=== PATIENT | female | born 1935 | race Caucasian/White ===

== ENCOUNTER 2017-12-07 17:54 | Inpatient (IN) | payer MEDICARE ==
[2017-12-07 19:18] LABS: ABS Basophils 0.1 10^3/ul (0-0.2); ABS Eosinophils 0 10^3/ul (0-0.6); ABS Lymphocytes 1.8 10^3/ul (1.0-4.8); ABS Monocytes 1.4 10^3/ul (0-0.8); ABS Neutrophils 10.9 10^3/ul (1.5-7.7); ABS Nucleated RBC 0 10^3/ul; Eosinophil % 0 % (0-6); Hematocrit 42 % (35-47); Hemoglobin 14.6 g/dl (12.0-16.0); Lymphocyte % 12.5 % (25-47); Mean Corpuscular HGB Conc 35 g/dl (31-36); Mean Corpuscular Hemoglobin 31 pg (27-31); Mean Corpuscular Volume 88 fL (80-97); Mean Platelet Volume 7 um3 (7.4-10.4); Nucleated Red Blood Cells % 0.2; Platelet Count 201 10^3/ul (150-450); Red Blood Count 4.78 10^6/ul (4.0-5.4); Red Cell Distribution Width 14 % (10.5-15); White Blood Count 14.1 10^3/ul (3.5-10.8)
--- NOTE | 2017-12-07 19:20 | RAD ---
Indication: Shortness of breath. 2 views of the chest demonstrates hyperinflated lung dixon. Elevated left hemidiaphragm is noted. Left basilar airspace disease is noted. Right lung field is clear. IMPRESSION: Left lower lobe airspace disease. Lung dixon are clear.
[2017-12-07] MEDS ORDERED: Levofloxacin 750 MG IVPREMIX(* 750 MG/150 ML BAG IVPB ONE (19:25)
[2017-12-07] MEDS ORDERED: NS 0.9% 1000 ML* 1,000 ML IV ONE (19:26)
[2017-12-07 19:32] LABS: INR 1.15 (0.77-1.02)
[2017-12-07 19:34] LABS: EGFR Non-African American 24.8 (>60)
[2017-12-07] MEDS ORDERED: Albuterol 2.5 MG/3 ML NEB.SOL* (0.083%) INH ONE (19:47)
[2017-12-07] MEDS ORDERED: Albuterol/Ipratropium NEB.SOL* Albuterol 2.5 MG/Ipratropium 0.5 MG 3 ML INH ONE (19:47)
--- NOTE | 2017-12-07 20:39 | ED ---
Lin Horowitz Edward, scribed for Angelina Paul MD on 12/07/17 at 1939 . Complex/Multi-Sys Presentation - HPI Summary HPI Summary: 82 y/o female presents to the ED c/o general weakness. Pt was on the toilet and "couldn't get up", per pts' sister. Pt believes she was on the toilet for a couple of hours. Pt lives alone and takes care of herself. Pt is on O2 at home. Per pt's sister, the pt has not been taking her medications. Pt's sister states her family checks on her every couple of weeks. PMHx dementia. - History Of Current Complaint Chief Complaint: EDShortnessOfBreath Time Seen by Provider: 12/07/17 19:18 Hx Obtained From: Patient Onset/Duration: Still Present Timing: Constant - Allergies/Home Medications Allergies/Adverse Reactions: Allergies Allergy/AdvReac Type Severity Reaction Status Date / Time No Known Allergies Allergy Verified 06/03/16 08:56 Home Medications: Home Medications Acetaminophen TAB* [Tylenol TAB*] 650 mg PO Q8HR PRN 12/07/17 [History Confirmed 12/07/17] Judd/D3/Mag11/Zinc/Slinger Sequins/Raji/Bor [Caltrate 600+D Plus Tablet] 2 tab PO BID WITH MEALS 12/07/17 [History Confirmed 12/07/17] Fluticasone NASAL SPRAY 50MCG* [Flonase NASAL SPRAY 50MCG*] 2 spray BOTH NARES DAILY 12/07/17 [History Confirmed 12/07/17] Fluticasone-Salmeterol 250-50* [Advair Diskus 250-50*] 1 puff INH BID 12/07/17 [ History Confirmed 12/07/17] Simvastatin (NF) [Zocor (NF)] 40 mg PO BEDTIME 12/07/17 [History Confirmed 12/07] Tiotropium CAP.INH* [Spiriva CAP.INH*] 1 cap.inh INH DAILY 12/07/17 [History Confirmed 12/07/17] PMH/Surg Hx/FS Hx/Imm Hx Previously Healthy: No Respiratory History: Reports: Hx Chronic Obstructive Pulmonary Disease (COPD) Musculoskeletal History: Denies: Hx Rheumatoid Arthritis, Hx Osteoporosis Neurological History: Reports: Hx Dementia - Cancer History Hx Chemotherapy: No Hx Radiation Therapy: No - Surgical History Surgery Procedure, Year, and Place: lung biopsy Infectious Disease History: No Infectious Disease History: Denies: Traveled Outside the [place] in Last 30 Days - Social History Alcohol Use: None Substance Use Type: Reports: None Smoking Status (MU): Former Smoker Type: Cigarettes Have You Smoked in the Last Year: Yes Review of Systems Constitutional: Negative Eyes: Negative ENT: Negative Cardiovascular: Negative Respiratory: Negative Gastrointestinal: Negative Genitourinary: Negative Musculoskeletal: Negative Skin: Negative Positive: Weakness Psychological: Normal All Other Systems Reviewed And Are Negative: Yes Physical Exam - Summary Physical Exam Summary: VITAL SIGNS: Reviewed. GENERAL: Patient is a well-developed and nourished female who is lying comfortable in the stretcher. Patient is not in any acute respiratory distress. HEAD AND FACE: No signs of trauma. No ecchymosis, hematomas or skull depressions. No sinus tenderness. EYES: PERRLA, EOMI x 2, No injected conjunctiva, no nystagmus. EARS: Hearing grossly intact. Ear canals and tympanic membranes are within normal limits. MOUTH: Oropharynx within normal limits. NECK: Supple, trachea is midline, no adenopathy, no JVD, no carotid bruit, no c- spine tenderness, neck with full ROM. CHEST: Symmetric, no tenderness at palpation LUNGS: Decreased breath sounds bilaterally. CVS: Regular rate and rhythm, S1 and S2 present, no murmurs or gallops appreciated. ABDOMEN: Soft, non-tender. No signs of distention. No rebound no guarding, and no masses palpated. Bowel sounds are normal. EXTREMITIES: FROM in all major joints, no edema, no cyanosis or clubbing. NEURO: Alert and oriented x2-3. Pt does not know her place. No acute neurological deficits. Speech is normal and follows commands. SKIN: Dry and warm Triage Information Reviewed: Yes Vital Signs On Initial Exam: Initial Vitals BP 118/45 12/07/17 18:09 Vital Signs Reviewed: Yes Diagnostics - Vital Signs Vital Signs Temp Pulse Resp BP Pulse Ox 12/07/17 19:00 78 22 98 12/07/17 18:16 97.9 F 83 18 118/45 100 12/07/17 18:11 80 98 12/07/17 18:09 118/45 - Laboratory Lab Results: Lab Results 12/07/17 12/07/1718 Range/Units 19:05 19:05 19:05 WBC 14.1 H (3.5-10.8) 10^3/ul RBC 4.78 (4.0-5.4) 10^6/ul Hgb 14.6 (12.0-16.0) g/dl Hct 42 (35-47) % MCV 88 (80-97) fL MCH 31 (27-31) pg MCHC 35 (31-36) g/dl RDW 14 (10.5-15) % Plt Count 201 (150-450) 10^3/ul MPV 7 L (7.4-10.4) um3 Neut % (Auto) 77.2 (38-83) % Lymph % (Auto) 12.5 L (25-47) % [place] % (Auto) 9.7 H (0-7) % Eos % (Auto) 0 (0-6) % Baso % (Auto) 0.6 (0-2) % Absolute Neuts (auto) 10.9 H (1.5-7.7) 10^3/ul Absolute Lymphs (auto) 1.8 (1.0-4.8) 10^3/ul Absolute Monos (auto) 1.4 H (0-0.8) 10^3/ul Absolute Eos (auto) 0 (0-0.6) 10^3/ul Absolute Basos (auto) 0.1 (0-0.2) 10^3/ul Absolute Nucleated RBC 0 10^3/ul Nucleated RBC % 0.2 INR (Anticoag Therapy) (0.77-1.02) D-Dimer, Quantitative (Less Than 230) ng/mL Sodium 136 (133-145) mmol/L Potassium 3.4 L (3.5-5.0) mmol/L Chloride 95 L (101-111) mmol/L Carbon Dioxide 28 (22-32) mmol/L Anion Gap 13 H (2-11) mmol/L BUN 23 (6-24) mg/dL Creatinine 1.94 H (0.51-0.95) mg/dL Est GFR ( Amer) 31.9 (>60) Est GFR (Non-Af Amer) 24.8 (>60) BUN/Creatinine Ratio 11.9 (8-20) Glucose 141 H (70-100) mg/dL Lactic Acid (0.5-2.0) mmol/L Calcium 9.7 (8.6-10.3) mg/dL Total Bilirubin 1.10 H (0.2-1.0) mg/dL AST 57 H (13-39) U/L ALT 16 (7-52) U/L Alkaline Phosphatase 60 (34-104) U/L Troponin I Pending C-Reactive Protein 285.01 H (< 5.00) mg/L B-Natriuretic Peptide 174 H ( - 100) pg/mL Total Protein 6.6 (6.4-8.9) g/dL Albumin 3.4 (3.2-5.2) g/dL Globulin 3.2 (2-4) g/dL Albumin/Globulin Ratio 1.1 (1-3) 12/07/17 12/07/17 Range/Units 19:05 19:05 WBC (3.5-10.8) 10^3/ul RBC (4.0-5.4) 10^6/ul Hgb (12.0-16.0) g/dl Hct (35-47) % MCV (80-97) fL MCH (27-31) pg MCHC (31-36) g/dl RDW (10.5-15) % Plt Count (150-450) 10^3/ul MPV (7.4-10.4) um3 Neut % (Auto) (38-83) % Lymph % (Auto) (25-47) % [place] % (Auto) (0-7) % Eos % (Auto) (0-6) % Baso % (Auto) (0-2) % Absolute Neuts (auto) (1.5-7.7) 10^3/ul Absolute Lymphs (auto) (1.0-4.8) 10^3/ul Absolute Monos (auto) (0-0.8) 10^3/ul Absolute Eos (auto) (0-0.6) 10^3/ul Absolute Basos (auto) (0-0.2) 10^3/ul Absolute Nucleated RBC 10^3/ul Nucleated RBC % INR (Anticoag Therapy) 1.15 H (0.77-1.02) D-Dimer, Quantitative > 1050 H (Less Than 230) ng/mL Sodium (133-145) mmol/L Potassium (3.5-5.0) mmol/L Chloride (101-111) mmol/L Carbon Dioxide (22-32) mmol/L Anion Gap (2-11) mmol/L BUN (6-24) mg/dL Creatinine (0.51-0.95) mg/dL Est GFR ( Amer) (>60) Est GFR (Non-Af Amer) (>60) BUN/Creatinine Ratio (8-20) Glucose (70-100) mg/dL Lactic Acid 1.7 (0.5-2.0) mmol/L Calcium (8.6-10.3) mg/dL Total Bilirubin (0.2-1.0) mg/dL AST (13-39) U/L ALT (7-52) U/L Alkaline Phosphatase (34-104) U/L Troponin I C-Reactive Protein (< 5.00) mg/L B-Natriuretic Peptide ( - 100) pg/mL Total Protein (6.4-8.9) g/dL Albumin (3.2-5.2) g/dL Globulin (2-4) g/dL Albumin/Globulin Ratio (1-3) Result Diagrams: 12/07/17 19:05 12/07/17 19:05 Lab Statement: Any lab studies that have been ordered have been reviewed, and results considered in the medical decision making process. - Radiology CXR Xray Interpretation: Positive (See Comments) - Left lower lobe airspace disease. Lung dixon are clear. Radiology Interpretation Completed By: Radiologist - EKG 1 EKG Interpretation: 18:32 - SR @ 80 BPM. Normal axis, normal interval, no ischemic changes. Complex Multi-Symp Course/Dx Assessment/Plan: CXR SHOWS Left lower lobe airspace disease. Lung dixon are clear. EKG normal. Trop 0.06. Spoke with Dr. Perez, who agreed to admit the pt. - Diagnoses Provider Diagnoses: Pneumonia, COPD (chronic obstructive pulmonary disease), Rhabdomyolysis - Physician Notifications Discussed Care Of Patient With: Min Perez Time Discussed With Above Provider: 20:33 Instructed by Provider To: Admit As Inpatient Discharge - Discharge Plan Condition: Stable Disposition: ADMITTED TO [facility] Referrals: Aurea Dorsey MD [Primary Care Provider] - The documentation as recorded by the scribLin stein Edward accurately reflects the service I personally performed and the decisions made by me, Angelina Paul MD.
--- NOTE | 2017-12-07 23:18 | HP ---
H&P (Free Text) History and Physical: PCP: Lam Dorsey MD Date/Time: 12/07/2017 2320 CC: SOB HPI: Mrs Schroeder is an 82YO female HX of dementia COPD, lung nodules, essential tremor, metabolic syndrome, HLD/hypertriglyceridemia, DVT/PE, & osteoporosis who reports increased fatigue over the past few days. She went to the restroom reportedly around 0930 and was found on the toilet around 1130 by her sister who came to visit and was unable to assist her up and so EMS was called. Initially, Mrs Schroeder refused transport, but eventually acquiesced. She reports mild cough and congestion for the past 6 months with occasional subjective fevers, but denies chills, sweats, N/V, diarrhea, chest pain, abdominal pain, rash/wound, changes in bowel/bladder or other issues. Of note, her anticoagulation for DVT/PE was discontinued ~2 months ago per her sister due to hematuria. However, her presentation gives me low concern for PE despite her d-dimer being elevated as its predictive value in this scenario is low. Will check BLE US in AM, but do not plan to pursue further. PMedHx COPD lung nodules essential tremor metabolic syndrome HLD/hypertriglyceridemia osteoporosis DVT/PE dementia Ambulatory Orders Acetaminophen TAB* [Tylenol TAB*] 650 mg PO Q8HR PRN 12/07/17 Judd/D3/Mag11/Zinc/Beater [employer] Leveling Machine/Raji/Bor [Caltrate 600+D Plus Tablet] 2 tab PO BID WITH MEALS 12/07/17 Fluticasone NASAL SPRAY 50MCG* [Flonase NASAL SPRAY 50MCG*] 2 spray BOTH NARES DAILY 12/07/17 Fluticasone-Salmeterol 250-50* [Advair Diskus 250-50*] 1 puff INH BID 12/07/17 Simvastatin (NF) [Zocor (NF)] 40 mg PO BEDTIME 12/07/17 Allergies No Known Allergies Allergy (Verified 06/03/16 08:56) PSurgHx tonsillectomy SocHx: quit smoking 2 months ago with a >50PYHX, no alcohol or recreational drugs; lives alone in a private home; full code status FamHx: positive for Alzheimer's ROS: as above, otherwise reviewed and all were negative vitals: Vital Signs Temp 36.4 C 12/08/17 01:23 Pulse 83 12/08/17 01:23 Resp 20 12/08/17 01:23 BP 108/41 12/08/17 01:23 Pulse Ox 97 12/08/17 01:23 Intake & Output 12/07/17 12/07/17 12/08/17 11:59 23:59 11:59 Intake Total 1150 Balance 1150 Weight 68.039 kg 79.016 kg Intake: IV Fluids 1150 Constitutional: NAD, normally developed, obese elderly white female HEENM: atraumatic; sclera/conjunctiva: anicteric/clear; hearing: clinically mildly decreased; oropharynx: clear, mucosa tacky Neck: soft tissue: non-tender, no nuchal rigidity; thyroid: normal Pulmonary: L>R basilar crackles, fair to good aeration, no accessory muscle use CV: RR/RR, normal S1S2, no carotid bruit, no jugular venous distention, 2+ B DP/ PT, no edema Abdominal: soft, non-distended, non-tender, no rebound/guarding/rigidity, normoactive bowel sounds, no hepatosplenomegaly or masses, no costovertebral angle tenderness Musculoskeletal: general: grossly intact, no tenderness with palpation Integumental: normal appearance and texture of exposed skin Psychiatric orientation: AA&O to PP, only loosely to situation affect: calm, pleasantly confused mood: cooperative eye contact: fair to good content: unreliable memory: impaired responses: timely insight: poor Testing: Lab Results 12/07/17 12/07/17 12/07/17 Range/Units 19:05 19:05 19:05 WBC 14.1 H (3.5-10.8) 10^3/ul RBC 4.78 (4.0-5.4) 10^6/ul Hgb 14.6 (12.0-16.0) g/dl Hct 42 (35-47) % MCV 88 (80-97) fL MCH 31 (27-31) pg MCHC 35 (31-36) g/dl RDW 14 (10.5-15) % Plt Count 201 (150-450) 10^3/ul MPV 7 L (7.4-10.4) um3 Neut % (Auto) 77.2 (38-83) % Lymph % (Auto) 12.5 L (25-47) % [place] % (Auto) 9.7 H (0-7) % Eos % (Auto) 0 (0-6) % Baso % (Auto) 0.6 (0-2) % Absolute Neuts (auto) 10.9 H (1.5-7.7) 10^3/ul Absolute Lymphs (auto) 1.8 (1.0-4.8) 10^3/ul Absolute Monos (auto) 1.4 H (0-0.8) 10^3/ul Absolute Eos (auto) 0 (0-0.6) 10^3/ul Absolute Basos (auto) 0.1 (0-0.2) 10^3/ul Absolute Nucleated RBC 0 10^3/ul Nucleated RBC % 0.2 INR (Anticoag Therapy) (0.77-1.02) D-Dimer, Quantitative (Less Than 230) ng/mL Sodium 136 (133-145) mmol/L Potassium 3.4 L (3.5-5.0) mmol/L Chloride 95 L (101-111) mmol/L Carbon Dioxide 28 (22-32) mmol/L Anion Gap 13 H (2-11) mmol/L BUN 23 (6-24) mg/dL Creatinine 1.94 H (0.51-0.95) mg/dL Est GFR ( Amer) 31.9 (>60) Est GFR (Non-Af Amer) 24.8 (>60) BUN/Creatinine Ratio 11.9 (8-20) Glucose 141 H (70-100) mg/dL Lactic Acid (0.5-2.0) mmol/L Calcium 9.7 (8.6-10.3) mg/dL Total Bilirubin 1.10 H (0.2-1.0) mg/dL AST 57 H (13-39) U/L ALT 16 (7-52) U/L Alkaline Phosphatase 60 (34-104) U/L Total Creatine Kinase 1676 H (10-223) U/L Troponin I 0.06 H* (<0.04) ng/mL C-Reactive Protein 285.01 H (< 5.00) mg/L B-Natriuretic Peptide 174 H ( - 100) pg/mL Total Protein 6.6 (6.4-8.9) g/dL Albumin 3.4 (3.2-5.2) g/dL Globulin 3.2 (2-4) g/dL Albumin/Globulin Ratio 1.1 (1-3) 12/07/17 12/07/17 Range/Units 19:05 19:05 WBC (3.5-10.8) 10^3/ul RBC (4.0-5.4) 10^6/ul Hgb (12.0-16.0) g/dl Hct (35-47) % MCV (80-97) fL MCH (27-31) pg MCHC (31-36) g/dl RDW (10.5-15) % Plt Count (150-450) 10^3/ul MPV (7.4-10.4) um3 Neut % (Auto) (38-83) % Lymph % (Auto) (25-47) % [place] % (Auto) (0-7) % Eos % (Auto) (0-6) % Baso % (Auto) (0-2) % Absolute Neuts (auto) (1.5-7.7) 10^3/ul Absolute Lymphs (auto) (1.0-4.8) 10^3/ul Absolute Monos (auto) (0-0.8) 10^3/ul Absolute Eos (auto) (0-0.6) 10^3/ul Absolute Basos (auto) (0-0.2) 10^3/ul Absolute Nucleated RBC 10^3/ul Nucleated RBC % INR (Anticoag Therapy) 1.15 H (0.77-1.02) D-Dimer, Quantitative > 1050 H (Less Than 230) ng/mL Sodium (133-145) mmol/L Potassium (3.5-5.0) mmol/L Chloride (101-111) mmol/L Carbon Dioxide (22-32) mmol/L Anion Gap (2-11) mmol/L BUN (6-24) mg/dL Creatinine (0.51-0.95) mg/dL Est GFR ( Amer) (>60) Est GFR (Non-Af Amer) (>60) BUN/Creatinine Ratio (8-20) Glucose (70-100) mg/dL Lactic Acid 1.7 (0.5-2.0) mmol/L Calcium (8.6-10.3) mg/dL Total Bilirubin (0.2-1.0) mg/dL AST (13-39) U/L ALT (7-52) U/L Alkaline Phosphatase (34-104) U/L Total Creatine Kinase (10-223) U/L Troponin I (<0.04) ng/mL C-Reactive Protein (< 5.00) mg/L B-Natriuretic Peptide ( - 100) pg/mL Total Protein (6.4-8.9) g/dL Albumin (3.2-5.2) g/dL Globulin (2-4) g/dL Albumin/Globulin Ratio (1-3) ECG, personally reviewed: NSR rate 80, no ischemia CXR, personally reviewed: interval development of infiltrate obscuring the L miguel-diaphragm Impression: 82F presenting with sepsis 2nd LLL pneumonia DIAGNOSIS & PLAN Primary LLL pneumonia : IVFs : IV levofloxacin : blood & sputum CXs : check rapid influenza : check S Pneumo & Legionella urine antigens : CRP >150, indication for steroids in CAP, start IV methylprednisolone : supplemental oxygen : supportive care acute encephalopathy complicated baseline dementia : if no improvement in cognition, may need placement : social media content specialist consult early rhabdomyolysis : IVFs, trend total CK BRICE, suspect pre-renal : IVFs, trend hypoKalemia : replace elevated d-dimer : check BLE US in AM : no clinical complaints consistent with PE, low predictive value in this settin , no further work up recommended elevated troponin : suspect demand ischemia 2nd pneumonia : telemetry, trend Secondary COPD : albuterol nebs : mometasone/formoterol : tiotropium lung nodules : continue outpatient surveillance essential tremor : no acute issues HLD/hypertriglyceridemia : continue simvastatin HX DVT/PE : SQ heparin dementia : consider initiating donepezil upon discharge Admission Rational: inpatient for IVFs and IV ABX required for LLL pneumonia in a patient at high risk of morbidity/mortality; inappropriate for outpatient setting DVTp: heparin SQ Code Status: full HCP: sister
[2017-12-08] MEDS: NS 0.9% 1000 ML* 1,000 ML IV SCH ×2 (02:30→17:57)
[2017-12-08] MEDS ORDERED: methylPREDNISolone 125 MG* 2 ML VIAL IV ONE (03:44)
[2017-12-08] MEDS ORDERED: Albuterol 2.5 MG/3 ML NEB.SOL* (0.083%) INH PRN (03:48)
[2017-12-08] MEDS ORDERED: Spiriva Inhaler DEVICE* 1 EACH DEVICE SCH (04:00)
[2017-12-08] MEDS: Potassium Chlor TAB* 20 MEQ TAB.ER PO ONE ×2 (04:23→04:43)
[2017-12-08 07:21] LABS: ABS Basophils 0 10^3/ul (0-0.2); ABS Eosinophils 0 10^3/ul (0-0.6); ABS Lymphocytes 0.9 10^3/ul (1.0-4.8); ABS Monocytes 0.3 10^3/ul (0-0.8); ABS Neutrophils 7.4 10^3/ul (1.5-7.7); ABS Nucleated RBC 0 10^3/ul; Eosinophil % 0.1 % (0-6); Hematocrit 36 % (35-47); Hemoglobin 12.7 g/dl (12.0-16.0); Lymphocyte % 9.9 % (25-47); Mean Corpuscular HGB Conc 35 g/dl (31-36); Mean Corpuscular Hemoglobin 31 pg (27-31); Mean Corpuscular Volume 88 fL (80-97); Mean Platelet Volume 7 um3 (7.4-10.4); Nucleated Red Blood Cells % 0; Platelet Count 146 10^3/ul (150-450); Red Blood Count 4.11 10^6/ul (4.0-5.4); Red Cell Distribution Width 13 % (10.5-15); White Blood Count 8.6 10^3/ul (3.5-10.8)
[2017-12-08 07:39] LABS: EGFR Non-African American 43.1 (>60)
--- NOTE | 2017-12-08 08:44 | RAD ---
HISTORY: Elevated dimer and history of PE TECHNIQUE: Multiple transverse and longitudinal ultrasound images were obtained of the veins of the bilateral lower extremities using grayscale, color Doppler, and spectral Doppler imaging with and without compression and with augmentation. FINDINGS: VEINS: Right: The right common femoral vein exhibits positive color flow and phasicity. Beginning at the mid right femoral vein, there is occlusive thrombus extending through the remainder of the femoral-popliteal veins and into the posterior tibial veins. Left: There is occlusive thrombus beginning at the left common femoral vein extending through the femoral popliteal venous system and including one of the 2 peroneal veins and one posterior tibial vein. The left small saphenous vein is also occluded. IMPRESSION: Occlusive thrombus extending from the right mid femoral vein to the infrapopliteal veins and from the left common femoral vein including the infrapopliteal veins.
[2017-12-08] MEDS: Tiotropium CAP.INH* CAP.INH/18 MCG (USE ORDER SET !) INH SCH (09:19)
[2017-12-08] MEDS: Mometasone/Formoter 200/5 MDI INH SCH ×2 (09:20→21:23)
[2017-12-08] MEDS: guaiFENesin ER TAB 600 MG PO SCH ×3 (10:22→21:30)
[2017-12-08] MEDS ORDERED: Potassium Chlor TAB* 20 MEQ TAB.ER PO ONE (10:27)
--- NOTE | 2017-12-08 10:52 | PN ---
Subjective Date of Service: 12/08/17 Interval History: +cough otherwise no complaints Denies SOB although some difficulty with talking No pain No CP, N/V, LH Objective Active Medications: Albuterol (Ventolin 2.5 Mg/3 Ml Neb.Diana*) 2.5 mg INH Q2H PRN PRN Reason: SOB/WHEEZING Atorvastatin Calcium (Lipitor*) 20 mg PO BEDTIME [facility] Device (Tiotropium Inhaler Device*) 1 each .SEE ORDER .USE w/ SPIRIVA CAPS [facility] Enoxaparin Sodium (Lovenox(*)) 80 mg SUBCUT Q24H [facility] Fluticasone Propionate (Flonase Nasal Mondamin 50mcg*) 2 spray BOTH NARES DAILY [facility] Guaifenesin (Mucinex*) 1,200 mg PO BID [facility] Last Admin: 12/08/17 10:22 Dose: 1,200 mg Levofloxacin/Dextrose (Levaquin 750 Mg Ivpremix(*)) 750 mg in 150 mls @ 100 mls /hr IVPB Q48H [facility] Sodium Chloride (Ns 0.9% 1000 Ml*) 1,000 mls @ 100 mls/hr IV PER RATE [facility] Last Admin: 12/08/17 02:30 Dose: 100 mls/hr Methylprednisolone Sodium Succinate (Solu-Medrol 40 Mg) 40 mg IV Q8H [facility] Mometasone Furoate/Formoterol Fumar (Dulera 200/5 Mdi*) 2 puff INH BID [facility] Last Admin: 12/08/17 09:20 Dose: 2 puff Pharmacy Profile Note (Coumadin Per Pharmacy*) 5 note FOLLOW UP .PER PHARMACY PROTOC [facility] PRN Reason: Protocol Tiotropium [place] (Spiriva Cap.Inh*) 1 cap INH DAILY [facility] Last Admin: 12/08/17 09:19 Dose: 1 cap.inh Warfarin Sodium (Coumadin Tab(*)) 5 mg PO 1700 ONE Stop: 12/08/17 17:01 Vital Signs - 8 hr 12/08/17 12/08/17 12/08/17 07:29 08:00 09:24 Temperature 98.1 F Pulse Rate 75 70 Respiratory 18 18 16 Rate Blood Pressure 110/49 (mmHg) O2 Sat by Pulse 96 98 Oximetry Oxygen Devices in Use Now: Nasal Cannula Appearance: chronically ill, NAD, difficult talking in full sentences but not using accessory muscles of respiration Eyes: No Scleral Icterus, PERRLA Ears/Nose/Mouth/Throat: Clear Oropharnyx, Mucous Membranes Moist Neck: NL Appearance and Movements; NL JVP, Trachea Midline Respiratory: Symmetrical Chest Expansion and Respiratory Effort, - - rhonchi left base Cardiovascular: NL Sounds; No Murmurs; No JVD, RRR Abdominal: NL Sounds; No Tenderness; No Distention, No Hepatosplenomegaly Lymphatic: No Cervical Adenopathy Extremities: No Edema, No Clubbing, Cyanosis Skin: No Rash or Ulcers Neurological: Alert and Oriented x 3, - - cn 2-12 intact Result Diagrams: 12/08/17 07:05 12/08/17 07:05 Additional Lab and Data: Lab Results 12/07/17 12/07/17 12/07/17 Range/Units 19:05 19:05 19:05 WBC 14.1 H (3.5-10.8) 10^3/ul RBC 4.78 (4.0-5.4) 10^6/ul Hgb 14.6 (12.0-16.0) g/dl Hct 42 (35-47) % MCV 88 (80-97) fL MCH 31 (27-31) pg MCHC 35 (31-36) g/dl RDW 14 (10.5-15) % Plt Count 201 (150-450) 10^3/ul MPV 7 L (7.4-10.4) um3 Neut % (Auto) 77.2 (38-83) % Lymph % (Auto) 12.5 L (25-47) % [place] % (Auto) 9.7 H (0-7) % Eos % (Auto) 0 (0-6) % Baso % (Auto) 0.6 (0-2) % Absolute Neuts (auto) 10.9 H (1.5-7.7) 10^3/ul Absolute Lymphs (auto) 1.8 (1.0-4.8) 10^3/ul Absolute Monos (auto) 1.4 H (0-0.8) 10^3/ul Absolute Eos (auto) 0 (0-0.6) 10^3/ul Absolute Basos (auto) 0.1 (0-0.2) 10^3/ul Absolute Nucleated RBC 0 10^3/ul Nucleated RBC % 0.2 INR (Anticoag Therapy) (0.77-1.02) D-Dimer, Quantitative (Less Than 230) ng/mL Sodium 136 (133-145) mmol/L Potassium 3.4 L (3.5-5.0) mmol/L Chloride 95 L (101-111) mmol/L Carbon Dioxide 28 (22-32) mmol/L Anion Gap 13 H (2-11) mmol/L BUN 23 (6-24) mg/dL Creatinine 1.94 H (0.51-0.95) mg/dL Est GFR ( Amer) 31.9 (>60) Est GFR (Non-Af Amer) 24.8 (>60) BUN/Creatinine Ratio 11.9 (8-20) Glucose 141 H (70-100) mg/dL Lactic Acid (0.5-2.0) mmol/L Calcium 9.7 (8.6-10.3) mg/dL Total Bilirubin 1.10 H (0.2-1.0) mg/dL AST 57 H (13-39) U/L ALT 16 (7-52) U/L Alkaline Phosphatase 60 (34-104) U/L Troponin I Pending C-Reactive Protein 285.01 H (< 5.00) mg/L B-Natriuretic Peptide 174 H ( - 100) pg/mL Total Protein 6.6 (6.4-8.9) g/dL Albumin 3.4 (3.2-5.2) g/dL Globulin 3.2 (2-4) g/dL Albumin/Globulin Ratio 1.1 (1-3) 12/07/17 12/07/17 Range/Units 19:05 19:05 WBC (3.5-10.8) 10^3/ul RBC (4.0-5.4) 10^6/ul Hgb (12.0-16.0) g/dl Hct (35-47) % MCV (80-97) fL MCH (27-31) pg MCHC (31-36) g/dl RDW (10.5-15) % Plt Count (150-450) 10^3/ul MPV (7.4-10.4) um3 Neut % (Auto) (38-83) % Lymph % (Auto) (25-47) % [place] % (Auto) (0-7) % Eos % (Auto) (0-6) % Baso % (Auto) (0-2) % Absolute Neuts (auto) (1.5-7.7) 10^3/ul Absolute Lymphs (auto) (1.0-4.8) 10^3/ul Absolute Monos (auto) (0-0.8) 10^3/ul Absolute Eos (auto) (0-0.6) 10^3/ul Absolute Basos (auto) (0-0.2) 10^3/ul Absolute Nucleated RBC 10^3/ul Nucleated RBC % INR (Anticoag Therapy) 1.15 H (0.77-1.02) D-Dimer, Quantitative > 1050 H (Less Than 230) ng/mL Sodium (133-145) mmol/L Potassium (3.5-5.0) mmol/L Chloride (101-111) mmol/L Carbon Dioxide (22-32) mmol/L Anion Gap (2-11) mmol/L BUN (6-24) mg/dL Creatinine (0.51-0.95) mg/dL Est GFR ( Amer) (>60) Est GFR (Non-Af Amer) (>60) BUN/Creatinine Ratio (8-20) Glucose (70-100) mg/dL Lactic Acid 1.7 (0.5-2.0) mmol/L Calcium (8.6-10.3) mg/dL Total Bilirubin (0.2-1.0) mg/dL AST (13-39) U/L ALT (7-52) U/L Alkaline Phosphatase (34-104) U/L Troponin I C-Reactive Protein (< 5.00) mg/L B-Natriuretic Peptide ( - 100) pg/mL Total Protein (6.4-8.9) g/dL Albumin (3.2-5.2) g/dL Globulin (2-4) g/dL Albumin/Globulin Ratio (1-3) Microbiology and Other Data: Microbiology 12/08/17 04:05 Influenza Types A,B Antigen (JASON) - Final Nasal Specimen received for Influenza A/B Molecular testing Assess/Plan/Problems-Billing Assessment: 82 yo F h/o COPD, DVT/PE presents after inability to rise from toilet found with LLL PNA, BRICE, rhabdomyolysis, b/l LE DVTs - Patient Problems (1) Pneumonia Comment: Left lower lobe levaquin dosed for CrCl <30 steroids (2) Chronic respiratory failure Comment: On home O2 (3) COPD (chronic obstructive pulmonary disease) Comment: Not in exacerbation Steroids for PNA Dulera and tiotropium (4) Rhabdomyolysis Comment: Normal saline recheck total CK at 1200 (5) Acute kidney failure Comment: Improving in Setting of Infx c/w IVF (6) DVT (deep venous thrombosis) Comment: Will need lifelong AC Reportedly stopped AC 2/2 hematuria Start lovenox to coumadin Monitor (7) DVT prophylaxis Comment: Full dose lovenox
[2017-12-08] MEDS: Enoxaparin(*) 80 MG/0.8 ML SYR SUBCUT SCH (11:06)
[2017-12-08] MEDS: Fluticasone NASAL SPRAY 50MCG* 16 gm SPRAY BTL BOTH NARES SCH (11:07)
--- NOTE | 2017-12-08 15:00 | PN ---
Progress Note - Progress Note Date of Service: 12/08/17 Note: Unable to void Bladder scan >600cc Cook catheter and UA ordered.
[2017-12-08] MEDS ORDERED: Warfarin TAB(*) 5 MG PO ONE (17:00)
[2017-12-08 17:25] LABS: Urine Appearance Cloudy; Urine Blood 2+ (Negative); Urine Color Amber; Urine Ketones Trace (Negative); Urine Protein 1+(30 mg/dL) (Negative); Urine Urobilinogen Negative (Negative)
[2017-12-08] MEDS: Atorvastatin* 20 MG TAB PO SCH ×2 (21:26→21:30)
[2017-12-09] MEDS: guaiFENesin ER TAB 600 MG PO SCH ×2 (08:36→21:42)
[2017-12-09] MEDS: Tiotropium CAP.INH* CAP.INH/18 MCG (USE ORDER SET !) INH SCH (08:41)
[2017-12-09] MEDS: Fluticasone NASAL SPRAY 50MCG* 16 gm SPRAY BTL BOTH NARES SCH (08:41)
[2017-12-09] MEDS: Mometasone/Formoter 200/5 MDI INH SCH ×2 (08:41→20:50)
[2017-12-09] MEDS: methylPREDNISolone SOD 40 MG* 1 ML VIAL IV SCH ×2 (10:33→21:42)
[2017-12-09] MEDS: Enoxaparin(*) 80 MG/0.8 ML SYR SUBCUT SCH (10:33)
[2017-12-09 10:57] LABS: INR 1.06 (0.77-1.02)
[2017-12-09] MEDS ORDERED: Warfarin TAB(*) 5 MG PO ONE (17:00)
[2017-12-09] MEDS ORDERED: GuaiFENesin DM sugar free* 5 ML UDC PO PRN (17:48)
--- NOTE | 2017-12-09 18:27 | PN ---
Subjective Date of Service: 12/09/17 Interval History: +cough but unproductive Turning down lovenox but accepting late day Seen in conjunction with sister Appetite OK Objective Active Medications: Albuterol (Ventolin 2.5 Mg/3 Ml Neb.Diana*) 2.5 mg INH Q2H PRN PRN Reason: SOB/WHEEZING Atorvastatin Calcium (Lipitor*) 20 mg PO BEDTIME [facility] Last Admin: 12/08/17 21:30 Dose: Not Given Device (Tiotropium Inhaler Device*) 1 each .SEE ORDER .USE w/ SPIRIVA CAPS [facility] Enoxaparin Sodium (Lovenox(*)) 120 mg SUBCUT Q24HR@1100 [facility] Fluticasone Propionate (Flonase Nasal [place] 50mcg*) 2 spray BOTH NARES DAILY [facility] Last Admin: 12/09/17 08:41 Dose: 2 spray Guaifenesin (Mucinex*) 1,200 mg PO BID [facility] Last Admin: 12/09/17 08:36 Dose: 1,200 mg Guaifenesin/Dextromethorphan (Robitussin Dm Sugar Free*) 5 ml PO Q6H PRN PRN Reason: COUGH Levofloxacin/Dextrose (Levaquin 750 Mg Ivpremix(*)) 750 mg in 150 mls @ 100 mls /hr IVPB Q48H [facility] Methylprednisolone Sodium Succinate (Solu-Medrol 40 Mg) 40 mg IV Q8H [facility] Last Admin: 12/09/17 10:33 Dose: 40 mg Mometasone Furoate/Formoterol Fumar (Dulera 200/5 Mdi*) 2 puff INH BID [facility] Last Admin: 12/09/17 08:41 Dose: 2 puff Pharmacy Profile Note (Coumadin Per Pharmacy*) 5 note FOLLOW UP .PER PHARMACY PROTOC [facility] PRN Reason: Protocol Tiotropium [place] (Spiriva Cap.Inh*) 1 cap INH DAILY [facility] Last Admin: 12/09/17 08:41 Dose: 1 cap.inh Vital Signs - 8 hr 12/09/17 12/09/17 12/09/17 11:20 15:51 15:59 Temperature 97.1 F Pulse Rate 70 75 Respiratory 18 18 Rate Blood Pressure 93/42 114/61 (mmHg) O2 Sat by Pulse 97 98 98 Oximetry Oxygen Devices in Use Now: Nasal Cannula Appearance: NAD, talks in short sentences reportedly at baseline Eyes: No Scleral Icterus, PERRLA Ears/Nose/Mouth/Throat: Clear Oropharnyx, Mucous Membranes Moist Neck: NL Appearance and Movements; NL JVP, Trachea Midline Respiratory: Symmetrical Chest Expansion and Respiratory Effort, - - increased rhonchi, worse in left base, decreased BS in right Cardiovascular: RRR Abdominal: NL Sounds; No Tenderness; No Distention, No Hepatosplenomegaly Lymphatic: No Cervical Adenopathy Extremities: No Edema Neurological: - - AOx2 Result Diagrams: 12/08/17 07:05 12/09/17 10:29 Additional Lab and Data: Lab Results 12/07/17 12/07/17 12/07/17 Range/Units 19:05 19:05 19:05 WBC 14.1 H (3.5-10.8) 10^3/ul RBC 4.78 (4.0-5.4) 10^6/ul Hgb 14.6 (12.0-16.0) g/dl Hct 42 (35-47) % MCV 88 (80-97) fL MCH 31 (27-31) pg MCHC 35 (31-36) g/dl RDW 14 (10.5-15) % Plt Count 201 (150-450) 10^3/ul MPV 7 L (7.4-10.4) um3 Neut % (Auto) 77.2 (38-83) % Lymph % (Auto) 12.5 L (25-47) % [place] % (Auto) 9.7 H (0-7) % Eos % (Auto) 0 (0-6) % Baso % (Auto) 0.6 (0-2) % Absolute Neuts (auto) 10.9 H (1.5-7.7) 10^3/ul Absolute Lymphs (auto) 1.8 (1.0-4.8) 10^3/ul Absolute Monos (auto) 1.4 H (0-0.8) 10^3/ul Absolute Eos (auto) 0 (0-0.6) 10^3/ul Absolute Basos (auto) 0.1 (0-0.2) 10^3/ul Absolute Nucleated RBC 0 10^3/ul Nucleated RBC % 0.2 INR (Anticoag Therapy) (0.77-1.02) D-Dimer, Quantitative (Less Than 230) ng/mL Sodium 136 (133-145) mmol/L Potassium 3.4 L (3.5-5.0) mmol/L Chloride 95 L (101-111) mmol/L Carbon Dioxide 28 (22-32) mmol/L Anion Gap 13 H (2-11) mmol/L BUN 23 (6-24) mg/dL Creatinine 1.94 H (0.51-0.95) mg/dL Est GFR ( Amer) 31.9 (>60) Est GFR (Non-Af Amer) 24.8 (>60) BUN/Creatinine Ratio 11.9 (8-20) Glucose 141 H (70-100) mg/dL Lactic Acid (0.5-2.0) mmol/L Calcium 9.7 (8.6-10.3) mg/dL Total Bilirubin 1.10 H (0.2-1.0) mg/dL AST 57 H (13-39) U/L ALT 16 (7-52) U/L Alkaline Phosphatase 60 (34-104) U/L Troponin I Pending C-Reactive Protein 285.01 H (< 5.00) mg/L B-Natriuretic Peptide 174 H ( - 100) pg/mL Total Protein 6.6 (6.4-8.9) g/dL Albumin 3.4 (3.2-5.2) g/dL Globulin 3.2 (2-4) g/dL Albumin/Globulin Ratio 1.1 (1-3) 12/07/17 12/07/17 Range/Units 19:05 19:05 WBC (3.5-10.8) 10^3/ul RBC (4.0-5.4) 10^6/ul Hgb (12.0-16.0) g/dl Hct (35-47) % MCV (80-97) fL MCH (27-31) pg MCHC (31-36) g/dl RDW (10.5-15) % Plt Count (150-450) 10^3/ul MPV (7.4-10.4) um3 Neut % (Auto) (38-83) % Lymph % (Auto) (25-47) % [place] % (Auto) (0-7) % Eos % (Auto) (0-6) % Baso % (Auto) (0-2) % Absolute Neuts (auto) (1.5-7.7) 10^3/ul Absolute Lymphs (auto) (1.0-4.8) 10^3/ul Absolute Monos (auto) (0-0.8) 10^3/ul Absolute Eos (auto) (0-0.6) 10^3/ul Absolute Basos (auto) (0-0.2) 10^3/ul Absolute Nucleated RBC 10^3/ul Nucleated RBC % INR (Anticoag Therapy) 1.15 H (0.77-1.02) D-Dimer, Quantitative > 1050 H (Less Than 230) ng/mL Sodium (133-145) mmol/L Potassium (3.5-5.0) mmol/L Chloride (101-111) mmol/L Carbon Dioxide (22-32) mmol/L Anion Gap (2-11) mmol/L BUN (6-24) mg/dL Creatinine (0.51-0.95) mg/dL Est GFR ( Amer) (>60) Est GFR (Non-Af Amer) (>60) BUN/Creatinine Ratio (8-20) Glucose (70-100) mg/dL Lactic Acid 1.7 (0.5-2.0) mmol/L Calcium (8.6-10.3) mg/dL Total Bilirubin (0.2-1.0) mg/dL AST (13-39) U/L ALT (7-52) U/L Alkaline Phosphatase (34-104) U/L Troponin I C-Reactive Protein (< 5.00) mg/L B-Natriuretic Peptide ( - 100) pg/mL Total Protein (6.4-8.9) g/dL Albumin (3.2-5.2) g/dL Globulin (2-4) g/dL Albumin/Globulin Ratio (1-3) Microbiology and Other Data: Microbiology 12/08/17 04:05 Influenza Types A,B Antigen (JASON) - Final Nasal Specimen received for Influenza A/B Molecular testing Assess/Plan/Problems-Billing Assessment: 82 yo F h/o COPD, DVT/PE presents after inability to rise from toilet found with LLL PNA, BRICE, rhabdomyolysis, b/l LE DVTs - Patient Problems (1) Pneumonia Comment: Left lower lobe levaquin dosed for CrCl 35 steroids IV. Can consider tapering tomorrow 12/10 Flutter valve, consider chest PT tomorrow if still unable to expectorate sputum (2) Chronic respiratory failure Comment: On home O2 (3) COPD (chronic obstructive pulmonary disease) Comment: Not in exacerbation Steroids for PNA Dulera and tiotropium (4) Rhabdomyolysis Comment: Stop normal saline (5) Acute kidney failure Comment: Improving in Setting of Infx (6) DVT (deep venous thrombosis) Comment: Will need lifelong AC Reportedly stopped AC 11/14 hematuria Start lovenox to coumadin Monitor (7) Acute urinary retention Comment: parekh place 12/08 after >600 retained urine cx pending but no bacteria in UA (8) DVT prophylaxis Comment: Full dose lovenox
[2017-12-09] MEDS ORDERED: Levofloxacin 750 MG IVPREMIX(* 750 MG/150 ML BAG IVPB SCH (20:00)
[2017-12-09] MEDS: Atorvastatin* 20 MG TAB PO SCH (21:42)
[2017-12-10] MEDS: methylPREDNISolone SOD 40 MG* 1 ML VIAL IV SCH ×2 (04:50→12:57)
[2017-12-10] MEDS: Mometasone/Formoter 200/5 MDI INH SCH ×2 (08:26→20:08)
[2017-12-10] MEDS: Tiotropium CAP.INH* CAP.INH/18 MCG (USE ORDER SET !) INH SCH (08:27)
[2017-12-10 09:33] LABS: INR 1.35 (0.77-1.02)
[2017-12-10] MEDS: guaiFENesin ER TAB 600 MG PO SCH ×3 (10:23→23:04)
[2017-12-10] MEDS: Fluticasone NASAL SPRAY 50MCG* 16 gm SPRAY BTL BOTH NARES SCH (10:23)
[2017-12-10] MEDS: Enoxaparin(*) 150 MG/ML 1 ML SYRINGE SUBCUT SCH (10:24)
--- NOTE | 2017-12-10 13:25 | PN ---
Subjective Date of Service: 12/10/17 Interval History: Patient seen and examined at bedside. Denies fever, chills, shortness of breath , chest discomfort, N/V/D. Pt states that she uses 2L of O2 at home. Family History: Unchanged from Admission Social History: Unchanged from Admission Past Medical History: Unchanged from Admission Objective Active Medications: Albuterol (Ventolin 2.5 Mg/3 Ml Neb.Diana*) 2.5 mg INH Q2H PRN Reason: SOB/ WHEEZING Atorvastatin Calcium (Lipitor*) 20 mg PO BEDTIME [facility] Device (Tiotropium Inhaler Device*) 1 each .SEE ORDER .USE w/ SPIRIVA CAPS [facility] Enoxaparin Sodium (Lovenox(*)) 120 mg SUBCUT Q24HR@1100 [facility] Fluticasone Propionate (Flonase Nasal [place] 50mcg*) 2 spray BOTH NARES DAILY [facility] Guaifenesin (Mucinex*) 1,200 mg PO BID [facility] Guaifenesin/Dextromethorphan (Robitussin Dm Sugar Free*) 5 ml PO Q6H PRN Reason : COUGH Levofloxacin/Dextrose (Levaquin 750 Mg Ivpremix(*)) 750 mg in 150 mls @ 100 mls /hr IVPB Q48H [facility] Methylprednisolone Sodium Succinate (Solu-Medrol 40 Mg) 40 mg IV Q8H [facility] Mometasone Furoate/Formoterol Fumar (Dulera 200/5 Mdi*) 2 puff INH BID [facility] Pharmacy Profile Note (Coumadin Per Pharmacy*) 5 note FOLLOW UP .PER PHARMACY PROTOC [facility] Tiotropium [place] (Spiriva Cap.Inh*) 1 cap INH DAILY [facility] Warfarin Sodium (Coumadin Tab(*)) 5 mg PO ONCE@1700 ONE Stop: 12/10/17 17:01 Vital Signs - 8 hr 12/10/17 12/10/17 07:52 08:26 Temperature 97.4 F Pulse Rate 70 88 Respiratory 16 Rate Blood Pressure 132/58 (mmHg) O2 Sat by Pulse 96 Oximetry Oxygen Devices in Use Now: Nasal Cannula - 2.5L Appearance: NAD, laying in bed Ears/Nose/Mouth/Throat: Mucous Membranes Moist Respiratory: Symmetrical Chest Expansion and Respiratory Effort, Clear to Auscultation Cardiovascular: NL Sounds; No Murmurs; No JVD, RRR Abdominal: NL Sounds; No Tenderness; No Distention Extremities: - - Bilateral LE edema left > right Skin: No Rash or Ulcers Neurological: NL Muscle Strength and Tone, - - Alert and Oriented to Person, confused Lines/Tubes/Other Access: Clean, Dry and Intact Cook - patent, draining clear yellow urine, Clean, Dry and Intact Peripheral IV - site benign Nutrition: Taking PO's Result Diagrams: 12/08/17 07:05 12/09/17 10:29 Additional Lab and Data: Microbiology and Other Data: Microbiology 12/08/17 04:05 Influenza Types A,B Antigen (JASON) - Final Nasal Specimen received for Influenza A/B Molecular testing Assess/Plan/Problems-Billing Assessment: Ms. Schroeder is an 82 yo F with PMH significant for COPD, DVT/PE, and dementia who presented after inability to rise from toilet and was found to have LLL PNA , BRICE, rhabdomyolysis, and b/l LE DVTs. - Patient Problems (1) Pneumonia Code(s): J18.9 - PNEUMONIA, UNSPECIFIED ORGANISM SNOMED Code(s): 221731077 Comment: - Left lower lobe - Blood cultures, no growth day 2 - Urine antigens for legionella and S. Pneumo negative - Continue Levaquin, dosed for CrCl 35 and IV steroids (start PO taper in the AM ) - Flutter valve, consider chest PT if still unable to expectorate sputum (2) DVT (deep venous thrombosis) Code(s): I82.409 - ACUTE EMBOLISM AND THOMBOS UNSP DEEP VN UNSP LOWER EXTREMITY SNOMED Code(s): 787103722 Comment: - Occlusive thrombus extending from the right mid femoral vein to the infrapopliteal veins and from the left common femoral vein including the infrapopliteal veins. - Reportedly stopped anticoagulation secondary to hematuria - Will need lifelong anticoagulation - Continue lovenox bridge to coumadin (3) Rhabdomyolysis Code(s): M62.82 - RHABDOMYOLYSIS SNOMED Code(s): 632204585 Comment: - CK trending down (4) Chronic respiratory failure Code(s): J96.10 - CHRONIC RESPIRATORY FAILURE, UNSP W HYPOXIA OR HYPERCAPNIA SNOMED Code(s): 07747207 Comment: - Chronic hypoxic respiratory failure - On home O2 (5) Acute kidney failure Comment: - Resolved (6) Acute urinary retention Code(s): R33.8 - OTHER RETENTION OF URINE SNOMED Code(s): 604807989 Comment: - Cook place 12/08 after >600 retained - Urine cx pending but no bacteria in UA (7) Elevated troponin Code(s): R74.8 - ABNORMAL LEVELS OF OTHER SERUM ENZYMES SNOMED Code(s): 582465769 Comment: - Denies chest pain - Suspect secondary to demand ischemia in the setting of infection and fall (8) Hypokalemia Code(s): E87.6 - HYPOKALEMIA SNOMED Code(s): 84977352 Comment: - Resolved (9) COPD (chronic obstructive pulmonary disease) Code(s): J44.9 - CHRONIC OBSTRUCTIVE PULMONARY DISEASE, UNSPECIFIED SNOMED Code(s): 55817561 Comment: - No signs of exacerbation - Continue steroid lorena - Continue Dulera and tiotropium (10) DVT prophylaxis Code(s): OUF1498 - SNOMED Code(s): 355510744 Comment: - Lovenox bridge to Warfarin (11) Full code status Code(s): Z78.9 - OTHER SPECIFIED HEALTH STATUS SNOMED Code(s): 244389199 Status and Disposition: Inpatient. Discharge when medically stable, possibly ready for discharge to [facility] in the AM.
[2017-12-10] MEDS ORDERED: Warfarin TAB(*) 5 MG PO ONE (17:00)
[2017-12-10] MEDS: Atorvastatin* 20 MG TAB PO SCH ×2 (22:45→23:05)
[2017-12-11 06:27] LABS: Hematocrit 39 % (35-47); Hemoglobin 13.4 g/dl (12.0-16.0); Mean Platelet Volume 7 um3 (7.4-10.4); Platelet Count 220 10^3/ul (150-450)
[2017-12-11 06:53] LABS: INR 2.13 (0.77-1.02)
[2017-12-11] MEDS: guaiFENesin ER TAB 600 MG PO SCH (08:35)
[2017-12-11] MEDS: Fluticasone NASAL SPRAY 50MCG* 16 gm SPRAY BTL BOTH NARES SCH (08:37)
[2017-12-11] MEDS ORDERED: predniSONE TAB* 20 MG PO SCH (09:00)
[2017-12-11] MEDS: Tiotropium CAP.INH* CAP.INH/18 MCG (USE ORDER SET !) INH SCH (09:11)
[2017-12-11] MEDS: Mometasone/Formoter 200/5 MDI INH SCH (09:11)
[2017-12-11] MEDS: Enoxaparin(*) 150 MG/ML 1 ML SYRINGE SUBCUT SCH (10:56)
[2017-12-11 11:56] VITALS: BP 112/64
--- NOTE | 2017-12-11 12:47 | PN ---
Subjective Date of Service: 12/11/17 Interval History: Patient seen and examined at bedside. Denies fever, chills, shortness of breath , chest discomfort, N/V/D. Pt states that her voice has been "horse" for a few weeks. Pt has been declining medications, she has been encouraged to take her medications as directed. Occasionally reports a non productive cough. Family History: Unchanged from Admission Social History: Unchanged from Admission Past Medical History: Unchanged from Admission Objective Active Medications: Albuterol (Ventolin 2.5 Mg/3 Ml Neb.Diana*) 2.5 mg INH Q2H PRN Reason: SOB/ WHEEZING Atorvastatin Calcium (Lipitor*) 20 mg PO BEDTIME [facility] Device (Tiotropium Inhaler Device*) 1 each .SEE ORDER .USE w/ SPIRIVA CAPS [facility] Enoxaparin Sodium (Lovenox(*)) 120 mg SUBCUT Q24HR@1100 [facility] Fluticasone Propionate (Flonase Nasal [place] 50mcg*) 2 spray BOTH NARES DAILY [facility] Guaifenesin (Mucinex*) 1,200 mg PO BID [facility] Guaifenesin/Dextromethorphan (Robitussin Dm Sugar Free*) 5 ml PO Q6H PRN Reason : COUGH Levofloxacin/Dextrose (Levaquin 750 Mg Ivpremix(*)) 750 mg in 150 mls @ 100 mls /hr IVPB Q48H [facility] Mometasone Furoate/Formoterol Fumar (Dulera 200/5 Mdi*) 2 puff INH BID [facility] Pharmacy Profile Note (Coumadin Per Pharmacy*) 5 note FOLLOW UP .PER PHARMACY PROTOC [facility] Prednisone (Deltasone Tab*) 40 mg PO DAILY [facility] Tiotropium [place] (Spiriva Cap.Inh*) 1 cap INH DAILY [facility] Vital Signs - 8 hr 12/11/17 12/11/17 12/11/17 06:17 08:41 11:36 Temperature 97.3 F Pulse Rate 67 76 Respiratory 20 20 18 Rate Blood Pressure 115/57 117/58 (mmHg) O2 Sat by Pulse 96 95 Oximetry 12/11/17 11:56 Temperature 98.2 F Pulse Rate 66 Respiratory 16 Rate Blood Pressure 112/64 (mmHg) O2 Sat by Pulse 96 Oximetry Oxygen Devices in Use Now: Nasal Cannula - 2L Appearance: NAD, sitting up in bed Ears/Nose/Mouth/Throat: Mucous Membranes Moist Respiratory: Symmetrical Chest Expansion and Respiratory Effort, Clear to Auscultation - , diminished Cardiovascular: NL Sounds; No Murmurs; No JVD, RRR Abdominal: NL Sounds; No Tenderness; No Distention Extremities: No Edema Skin: No Rash or Ulcers Neurological: NL Muscle Strength and Tone, - - Alert and Oriented to Person, confused Lines/Tubes/Other Access: Clean, Dry and Intact Parekh - patent, draining clear yellow urine, Clean, Dry and Intact Peripheral IV - site benign Nutrition: Taking PO's Result Diagrams: 12/11/17 06:20 12/09/17 10:29 Additional Lab and Data: Microbiology and Other Data: Microbiology 12/08/17 04:05 Influenza Types A,B Antigen (JASON) - Final Nasal Specimen received for Influenza A/B Molecular testing Assess/Plan/Problems-Billing Assessment: Ms. Schroeder is an 82 yo F with PMH significant for COPD, DVT/PE, and dementia who presented after inability to rise from toilet and was found to have LLL PNA , BRICE, rhabdomyolysis, and b/l LE DVTs. - Patient Problems (1) Pneumonia Code(s): J18.9 - PNEUMONIA, UNSPECIFIED ORGANISM SNOMED Code(s): 822490741 Comment: - Left lower lobe - Blood cultures, no growth day 3 - Urine antigens for legionella and S. Pneumo negative - Continue Levaquin, renally dosed and steroid taper - Flutter valve, consider chest PT if still unable to expectorate sputum (2) DVT (deep venous thrombosis) Code(s): I82.409 - ACUTE EMBOLISM AND THOMBOS UNSP DEEP VN UNSP LOWER EXTREMITY SNOMED Code(s): 228664665 Comment: - Occlusive thrombus extending from the right mid femoral vein to the infrapopliteal veins and from the left common femoral vein including the infrapopliteal veins. - Reportedly stopped anticoagulation secondary to hematuria - Will need lifelong anticoagulation - Continue lovenox bridge to coumadin (3) Rhabdomyolysis Code(s): M62.82 - RHABDOMYOLYSIS SNOMED Code(s): 137536029 Comment: - CK trending down (4) Chronic respiratory failure Code(s): J96.10 - CHRONIC RESPIRATORY FAILURE, UNSP W HYPOXIA OR HYPERCAPNIA SNOMED Code(s): 04914638 Comment: - Chronic hypoxic respiratory failure - On home O2 (5) Acute kidney failure Comment: - Resolved (6) Acute urinary retention Code(s): R33.8 - OTHER RETENTION OF URINE SNOMED Code(s): 560127442 Comment: - Parekh place 12/08 after >600 retained - Urine cx pending but no bacteria in UA - Remove parekh 12/15 for a voiding trial (7) Elevated troponin Code(s): R74.8 - ABNORMAL LEVELS OF OTHER SERUM ENZYMES SNOMED Code(s): 340779031 Comment: - Denies chest pain - Suspect secondary to demand ischemia in the setting of infection and fall (8) Hypokalemia Code(s): E87.6 - HYPOKALEMIA SNOMED Code(s): 14043681 Comment: - Resolved (9) COPD (chronic obstructive pulmonary disease) Code(s): J44.9 - CHRONIC OBSTRUCTIVE PULMONARY DISEASE, UNSPECIFIED SNOMED Code(s): 30637435 Comment: - No signs of exacerbation - Continue steroid lorena - Continue Dulera and tiotropium (10) DVT prophylaxis Code(s): PWR0818 - SNOMED Code(s): 057283803 Comment: - Lovenox bridge to Warfarin (11) Full code status Code(s): Z78.9 - OTHER SPECIFIED HEALTH STATUS SNOMED Code(s): 582992523 Status and Disposition: Inpatient. Stable for discharge to [facility] [place] today.
--- NOTE | 2017-12-11 13:40 | DS ---
CC: Dr. Aurea Dorsey; [facility] [place]* DATE OF ADMISSION: 12/07/2017. DATE OF DISCHARGE: 12/11/2017. ATTENDING PHYSICIAN: Dr. Ivis Will* (dictated by Meche Rajan NP). PRIMARY CARE PHYSICIAN: Dr. Aurea Dorsey. PRIMARY DIAGNOSES: 1. Left lower lobe pneumonia. 2. Acute encephalopathy complicated by baseline dementia, resolved. 3. Early rhabdomyolysis, resolved. 4. Acute kidney injury, resolved. 5. Hypokalemia, resolved. 6. Hypertroponemia, suspect secondary to demand ischemia secondary to pneumonia. 7. Urinary retention. 8. Bilateral lower extremity DVT's. SECONDARY DIAGNOSES: 1. COPD. 2. History of lung nodules. 3. Essential tremor. 4. Hyperlipidemia. 5. History of DVT/PE. 6. Dementia. 7. Chronic hypoxic respiratory failure. STUDIES DONE WHILE IN THE HOSPITAL: 1. Chest x-ray, 12/07/2017: Radiologist's impression: Left lower lobe airspace disease. Lung dixon are clear. 2. Bilateral lower extremity venous Doppler ultrasound, 12/08/2017: Radiologist's impression: Occlusive thrombus extending from the right mid femoral vein to the infrapopliteal veins and from the left common femoral vein including the infrapopliteal veins. DISCHARGE MEDICATIONS: New home medications: 1. Levaquin 500 mg oral every 48 hours, first dose being tonight; discontinue after 3 doses. 2. Guaifenesin 1,200 mg oral twice daily. 3. Lovenox 120 mg subcutaneous every 24 hours; the patient should take for 2 more doses then stop. 4. Prednisone daily with taper as follows: 40 mg for 2 days, followed by 30 mg oral for 3 days, followed by 20 mg oral for 3 days, followed by 10 mg oral for 3 days, and then stop. 5. Spiriva one capsule inhalation daily. 6. Warfarin 4 mg oral daily. Recheck INR on December 15 and adjust as needed. Continued home medications: 1. Flonase nasal spray two sprays to both nares daily. 2. Advair Diskus 250-50 one puff inhalation twice daily. 3. Zocor 40 mg oral daily at bedtime. 4. Caltrate 600+D Plus two tablets oral twice daily with meals. 5. Acetaminophen 650 mg oral every 8 hours as needed for pain. HISTORY OF PRESENT ILLNESS/HOSPITAL COURSE: Ms. Humulock is an 82-year-old female with a past medical history significant for dementia, COPD, lung nodules , essential tremor, metabolic syndrome, hyperlipidemia, history of DVT and PE, and osteoporosis who had been reporting increased fatigue over the past few days. The patient went to the restroom around 9:30 a.m. and was found on the toilet around 11:30 by her sister who came to visit. She was unable to get up, so EMS was called. Initially Ms. Schroeder was refusing transport, but eventually agreed to come to the emergency room. She had been reporting a mild cough, congestion for the past six months with occasional subjective fevers and denied chills, sweats, nausea, vomiting, diarrhea, chest pain, abdominal pain, changes in her bowel or bladder. The patient had recently discontinued her anticoagulation for her history of DVT and PE approximately two months ago due to reported hematuria. While in the emergency room, the patient had a chest x-ray showing a left lower lobe infiltrate with associated sepsis. She was also found to have early rhabdomyolysis and received IV fluids. The patient initially had leukocytosis in the ER, in addition to an elevated creatinine and elevated troponin, a CRP of 285. She was influenza A and B negative. The Hospitalists were asked to evaluate the patient for admission. While in the hospital, the patient was treated for her left lower lobe pneumonia with IV Levaquin who was renally dosed. She received potassium replacement and IV fluids. Her acute kidney injury resolved. Her troponins were trended. They peaked at 0.06. It was suspected this was secondary to demand ischemia in the setting of her pneumonia. Due to the patient's bilateral lower extremity DVT's, she was started on Lovenox and bridged to Warfarin. Her INR was therapeutic today at 2.13. Her leukocytosis resolved. She was afebrile during her stay. The patient has urine antigens for legionella and S. pneumoniae that were negative and was placed on a steroid taper. The patient has chronic hypoxic respiratory failure and is on her home O2. The patient was noted to have urinary retention and had a urinary catheter placed. She had a UA with no growth, urine culture is pending. She had blood cultures with no growth to date. Ms. Schroeder is stable for discharge to [facility] [place] today. Vital signs are as follows: Temperature 98.2, heart rate 66, respiratory rate 16, O2 sat 96 percent on 2 liters via nasal cannula, blood pressure 112/64. DISCHARGE PLAN: Ms. Schroeder will be discharged to [facility]. Activity is as tolerated. She should be seen by Physical Therapy and Occupational Therapy and continue treatment as deemed necessary. As far as her pneumonia, she should continue Levaquin 500 mg every 48 hours with a dose this evening and then two more doses after that. She should be continued on a Mucinex and a Prednisone taper. She should take 40 mg of Prednisone for two more days, followed by 30 mg for three days, followed by 20 mg for three days, followed by 10 mg for three days, and then stop. As far as her bilateral lower extremity DVT, she should have Lovenox 120 mg subcu daily. She should take this for 48 more hours as her INR was therapeutic finally this morning. She should be continued on Warfarin 4 mg oral daily. She should have an INR rechecked on December 15 and adjust her Warfarin accordingly. As far as the patient's urinary retention, I recommend leaving her urinary catheter in place for a total of one week. It should be removed on December 15 and have her doing a voiding trial. If she is unable to urinate, I would replace the Cook and consider an outpatient Urology consult. The patient often declines medications here. She should continue to be encouraged to take her medications accordingly. POINTS OF DISCUSSION AT FOLLOW-UP: Please continue to encourage the patient to be medically compliant. She should be seen in follow-up by a provider at [facility] [place] or her own primary care provider, Dr. Dorsey, in the next three to five days. The patient should return to the emergency room for any chest pain or shortness of breath. This is a summarized report of a complex medical history and hospital stay. For further details, please see the entire medical record. Time for this discharge was approximately 50 minutes, including 25 minutes spent with the patient and her family discussing discharge plans and instructions. CONDITION ON DISCHARGE: Stable. Reviewed by JARRET WILLINGHAM 12/15/17 1633 [id number]/[facility] #: [id number] [place]
[2017-12-11] MEDS ORDERED: Warfarin TAB(*) 3 MG PO ONE (17:00)
== END 2017-12-11 14:40 | DRG 871 ==
LOC: ED 17:54 → MED 23:23 → ED 12-08 00:51 → MED 12-10 20:25
PROVIDERS: ADMIT Hospitalist; ATTEND Hospitalist
PROC: 0T9B70Z Drainage of Bladder with Drainage Device, Via Natural or Artificial Opening (ICD-10-PCS; principal; 2017-12-08)
DX: A41.9 Sepsis, unspecified organism (principal); J18.9 Pneumonia, unspecified organism; G93.40 Encephalopathy, unspecified; N17.9 Acute kidney failure, unspecified; J96.11 Chronic respiratory failure with hypoxia; I82.413 Acute embolism and thrombosis of femoral vein, bilateral; I24.8 Other forms of acute ischemic heart disease; M62.82 Rhabdomyolysis; J44.0 Chronic obstructive pulmonary disease with (acute) lower respiratory infection; I82.433 Acute embolism and thrombosis of popliteal vein, bilateral; M81.0 Age-related osteoporosis without current pathological fracture; E66.9 Obesity, unspecified; F03.90 Unspecified dementia, unspecified severity, without behavioral disturbance, psychotic disturbance, mood disturbance, and anxiety; E87.6 Hypokalemia; R74.8 Abnormal levels of other serum enzymes; R33.9 Retention of urine, unspecified; G25.0 Essential tremor; E78.5 Hyperlipidemia, unspecified; Z86.718 Personal history of other venous thrombosis and embolism; Z86.711 Personal history of pulmonary embolism; Z79.01 Long term (current) use of anticoagulants; Z99.81 Dependence on supplemental oxygen; Z87.891 Personal history of nicotine dependence; Z82.0 Family history of epilepsy and other diseases of the nervous system; Z68.32 Body mass index [BMI] 32.0-32.9, adult
CPT/HCPCS: 36415; 71046; 80048; 80053; 81003; 81015; 82550; 83605; 83880; 84484; 85014; 85018; 85025; 85049; 85379; 85610; 86140; 87040; 87502; 87899; 93005; 93970; 94640; 94760; 99282; A9270-GY; J1650; J2920; J2930; J7512

== ENCOUNTER 2018-02-10 17:49 | Inpatient (IN) | payer MEDICARE ==
[2018-02-10 18:33] LABS: ABS Basophils 0.1 10^3/ul (0-0.2); ABS Eosinophils 0.3 10^3/ul (0-0.6); ABS Lymphocytes 2.2 10^3/ul (1.0-4.8); ABS Monocytes 0.5 10^3/ul (0-0.8); ABS Neutrophils 4.3 10^3/ul (1.5-7.7); ABS Nucleated RBC 0 10^3/ul; Eosinophil % 3.4 % (0-6); Hematocrit 38 % (35-47); Hemoglobin 12.5 g/dl (12.0-16.0); Mean Corpuscular HGB Conc 33 g/dl (31-36); Mean Corpuscular Hemoglobin 30 pg (27-31); Mean Corpuscular Volume 90 fL (80-97); Mean Platelet Volume 6.4 um3 (7.4-10.4); Nucleated Red Blood Cells % 0; Platelet Count 272 10^3/ul (150-450); Red Blood Count 4.18 10^6/ul (4.0-5.4); Red Cell Distribution Width 17 % (10.5-15); White Blood Count 7.3 10^3/ul (3.5-10.8)
--- NOTE | 2018-02-10 19:51 | RAD ---
HISTORY: Confusion, cough, anticoagulation COMPARISONS: None TECHNIQUE: Multiple contiguous axial CT scans were obtained of the head without intravenous contrast. FINDINGS: The study is limited by patient motion artifact. HEMORRHAGE/INFARCT: There is no hemorrhage or acute infarct. MASSES/SHIFT: There is a rounded high attenuation lesion of the left posterior temporal lobe with associated vasogenic edema measuring 1.3 cm in size. There is a probable second lesion within the left cerebellum measuring 2.3 cm in size. There is no shift. EXTRA-AXIAL SPACES: There are no extra-axial fluid collections. SULCI AND VENTRICLES: The sulci and ventricles are normal in size and position for the patient's stated age. CEREBRUM: As noted above, there is a high attenuation lesion of the left temporal lobe with vasogenic edema. BRAINSTEM: There are no focal parenchymal abnormalities. CEREBELLUM: As noted above, there is a probable lesion of the left cerebellum. VESSELS: The vessels are grossly normal. PARANASAL SINUSES: The paranasal sinuses are clear. There is a right mastoid effusion. ORBITS: The orbits are unremarkable. BONES AND SOFT TISSUE: No bone or soft tissue abnormalities are noted. 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 THERE IS NO SHIFT.
[2018-02-10] MEDS ORDERED: Dexamethasone IV* 4 MG/ML 1 ML (4 MG) IV SLOW PU ONE (20:26)
--- NOTE | 2018-02-10 20:38 | RAD ---
HISTORY: Brain mass, evaluate for primary tumor COMPARISONS: December 07, 2017 VIEWS: 4: Frontal dual-energy and lateral views of the chest. FINDINGS: CARDIOMEDIASTINAL SILHOUETTE: The cardiomediastinal silhouette is normal. POLO: The polo are normal. PLEURA: There is a small to moderate left pleural effusion. LUNG PARENCHYMA: The lungs are clear. ABDOMEN: The upper abdomen is clear. There is no subphrenic gas. BONES AND SOFT TISSUES: No bone or soft tissue abnormalities are noted. OTHER: None. IMPRESSION: LEFT PLEURAL EFFUSION
[2018-02-10] MEDS ORDERED: Acetaminophen TAB* 325 MG PO PRN (21:32)
[2018-02-10] MEDS ORDERED: Loperamide CAP* 2 MG PO PRN (21:37)
[2018-02-10] MEDS ORDERED: Warfarin TAB(*) 4 MG PO SCH (22:00)
[2018-02-10] MEDS ORDERED: Heparin VIAL(*) 5000 UNITS/ML VIAL (FIVE THOUSAND) SUBCUT SCH (22:00)
[2018-02-10 22:37] LABS: INR 2.51 (0.77-1.02)
[2018-02-10] MEDS ORDERED: Iohexol 300* (CONTRAST) 10 ML SDV IV ONE (22:42)
[2018-02-10 22:49] LABS: Urine Appearance Cloudy; Urine Blood 1+ (Negative); Urine Color Yellow; Urine Ketones Negative (Negative); Urine Protein Negative (Negative); Urine Specific Gravity 1.014 (1.010-1.030); Urine Urobilinogen Negative (Negative)
[2018-02-10] MEDS: NS 0.9% 1000 ML* 1,000 ML IV SCH (23:04)
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
[2018-02-11] MEDS: Dexamethasone IV* 4 MG/ML 1 ML (4 MG) IV SLOW PU SCH ×3 (02:50→15:39)
[2018-02-11] MEDS ORDERED: Dexamethasone IV* 10 MG in NS 0.9% 50 ML* 50 ML IVPB SCH (03:00)
[2018-02-11] MEDS ORDERED: Dexamethasone IV* 6 MG in NS 0.9% 50 ML* 50 ML IVPB SCH (03:00)
[2018-02-11] MEDS: Tiotropium CAP.INH* CAP.INH/18 MCG (USE ORDER SET !) INH SCH (07:29)
[2018-02-11] MEDS: Mometasone/Formoter 200/5 MDI INH SCH ×2 (07:30→21:00)
--- NOTE | 2018-02-11 08:46 | RAD ---
INDICATION: Evaluate for primary tumor. COMPARISON: Comparison is made with a prior CT of the chest from May 21, 2016 and a prior PET/CT study from February 15, 2016. TECHNIQUE: A CT scan of the chest, abdomen and pelvis was performed with intravenous and oral contrast following intravenous injection of 50 ml of Omnipaque 300 nonionic contrast. Contiguous axial sections were obtained from the lung apices through the symphysis pubis. Images were reconstructed in the coronal and sagittal planes. The patient had an initial infiltration of 100 mL of contrast into the right arm. The patient's nurse was notified. The patient did not have any discomfort at the time. FINDINGS: There is mild to moderate centrilobular emphysematous change. There is a small stable 0.5 cm right lower lobe pulmonary nodule. There is a new small 1.0 cm cavitary nodule present in the left upper lobe best seen on image #30. There is a mass posterior to the trachea extending into the subcarinal region. This likely invades the posterior aspect of the trachea and left mainstem bronchus. This likely represents metastatic adenopathy although may represent a mass arising from the esophagus. There is collapse of the left lower lobe which is filled with debris. The previous seen noted spiculated nodule in the superior segment of the left lower lobe is not visualized and obscured by the collapsed lung. There is a small left pleural effusion. There is probable left hilar lymphadenopathy which is not well-defined. The heart is within normal limits in size. There are coronary artery calcifications present. The thoracic aorta is normal in caliber. There is moderate calcific plaque present. The liver and spleen are normal in size without significant focal abnormality. No calcified gallstones are seen. The pancreas appears to be within normal limits in size. There is a 1.4 x 1.2 low-density right adrenal lesion which is unchanged from the prior CT of the chest and therefore most consistent with a benign adenoma. The left adrenal gland appears to be within normal limits. The kidneys are normal in size without focal abnormality or hydronephrosis. The urinary bladder is distended. No bladder wall thickening is present. The aorta is normal in caliber and there is moderate calcific plaque present. No significant enlarged retroperitoneal lymph nodes are seen. The stomach, small and large bowel appear nondistended. The appendix appears to be within normal limits. There is moderate sigmoid diverticulosis without evidence for diverticulitis or colitis. The uterus is retroverted and normal in size. No free intraperitoneal air or fluid is seen. There is grade 1 anterior spondylolisthesis at the L5-S1 level and bilateral spondylolysis at the L5 level. No other focal osseous abnormalities are seen. IMPRESSION: 1. THERE IS A RETROTRACHEAL AND SUBCARINAL MASS WHICH APPEARS TO INVADE THE POSTERIOR ASPECT OF THE TRACHEA AND LEFT MAINSTEM BRONCHUS. THERE IS LEFT LOWER LOBE COLLAPSE. THE PREVIOUSLY NOTED SPICULATED LEFT LOWER LOBE LESION IS OBSCURED BY THE COLLAPSED LUNG. THIS LIKELY REPRESENTS METASTATIC NEOPLASM ALTHOUGH AN ESOPHAGEAL PRIMARY CANNOT BE EXCLUDED. 2. NEW SMALL LEFT UPPER LOBE CAVITARY LESION. 3. STABLE RIGHT LOWER LOBE PULMONARY NODULE. 4. STABLE RIGHT ADRENAL NODULE.
[2018-02-11] MEDS ORDERED: Spiriva Inhaler DEVICE* 1 EACH DEVICE INH ONE (09:00)
[2018-02-11] MEDS ORDERED: Tiotropium CAP.INH* CAP.INH/18 MCG (USE ORDER SET !) INH SCH (09:00)
[2018-02-11] MEDS ORDERED: Enoxaparin(*) 100 MG/ML SYR SUBCUT SCH (09:00)
--- NOTE | 2018-02-11 09:58 | PN ---
Subjective Date of Service: 02/11/18 Interval History: Patient Alert and awake answering some questions and follows commands but is very confused which per her sister is her baseline. She recognizes her sister. She denies pain, vision changes or SIMPSON. Denies SOB, CP or pain with swallowing. The patient offers no complaints on exam Discussed CT results with sister who thinks she wants to take a palliative approach and even if radiation for palliative purposes was an option she is not sure she would put her through that. She would like to discuss with the oncologist to see what the options are. The sister is the HCP as the patient does not have any children (she does have a step son) or any other living siblings. Per sister she has been falling more in the last several weeks and she noted a bruise on her right knee. Otherwise she has not noted her complaining of pain, SOB or difficulty eating/swallowing Objective Active Medications: Acetaminophen (Tylenol Tab*) 650 mg PO Q4H PRN PRN Reason: PAIN Albuterol (Ventolin 2.5 Mg/3 Ml Neb.Diana*) 2.5 mg INH QID PRN PRN Reason: SOB/WHEEZING Atorvastatin Calcium (Lipitor*) 20 mg PO BEDTIME [facility] Dexamethasone Sodium Phosphate (Decadron Iv*) 6 mg IV SLOW PU Q6H [facility] Last Admin: 02/11/18 02:50 Dose: 6 mg Guaifenesin (Mucinex*) 600 mg PO BID [facility] Sodium Chloride (Ns 0.9% 1000 Ml*) 1,000 mls @ 75 mls/hr IV PER RATE [facility] Last Admin: 02/10/18 23:04 Dose: 75 mls/hr Loperamide HCl (Imodium Cap*) 2 mg PO Q4H PRN PRN Reason: DIARRHEA Mometasone Furoate/Formoterol Fumar (Dulera 200/5 Mdi*) 2 puff INH BID [facility] Last Admin: 02/11/18 07:30 Dose: 2 puff Tiotropium Jo[place] (Spiriva Cap.Inh*) 1 cap INH DAILY [facility] Last Admin: 02/11/18 07:29 Dose: 1 cap Vital Signs - 8 hr 02/11/18 02/11/18 02:44 02:50 Temperature 96.2 F 97.6 F Pulse Rate 81 Respiratory 16 Rate Blood Pressure 144/77 (mmHg) Oxygen Devices in Use Now: Nasal Cannula Appearance: elderly female laying in bed Alert in NAD. Follows comands. confused Eyes: No Scleral Icterus, PERRLA Ears/Nose/Mouth/Throat: NL Teeth, Lips, Gums, Mucous Membranes Moist Neck: NL Appearance and Movements; NL JVP Respiratory: Symmetrical Chest Expansion and Respiratory Effort, - - LLL dimished Cardiovascular: NL Sounds; No Murmurs; No JVD, RRR, No Edema Abdominal: NL Sounds; No Tenderness; No Distention Extremities: No Edema, No Clubbing, Cyanosis Skin: - - right knee ecchymosis Neurological: NL Sensation, NL Muscle Strength and Tone, - - alert Lines/Tubes/Other Access: Clean, Dry and Intact Peripheral IV Nutrition: Taking PO's Result Diagrams: 02/10/18 18:22 02/10/18 18:22 Microbiology and Other Data: Microbiology 02/10/18 23:00 Nasal Screen MRSA (PCR)(JASON) - Final Nasal Mrsa Not Detected Assess/Plan/Problems-Billing Assessment: Ms. Schroeder is a 82 yo female with PMH of dementia, COPD with chronic O2 use, Hx of DVT/PEs, essential tremor and hx of pulmonary nodules who presented to the ER from [facility] for increased confusion and agitation - Patient Problems (1) Brain mass Comment: - metastatic brain lesions with other found tumor burden. Pt is stable and appears comfortable - CT chest/abd/pelvis showing: "Retrotracheal and subcarinal mass which appears to invade the posterior aspect of the trachea and left mainstem bronchus. Left lower lobe collapse. The previously noted spiculated left lower lobe lesion is obscured by the collapsed lung. This liekly represents metastatic neoplasm although an esophageal primary cannot be ruled out. New small left upper lobe cavity lesion. Stable right lower lobe pulm nodule. Stable adrenal nodule". - Discussed with sister who wants a palliative approach. She would like to discuss with the oncologist in terms of prognosis. - Hospice concult ordered. - PT/OT eval - Continue Decadron (2) DVT (deep venous thrombosis) Comment: - hx of Occlusive thrombus extending from the right mid femoral vein to the infrapopliteal veins and from the left common femoral vein including the infrapopliteal veins - on Coumadin - INR therapuetic - hold todays dose until Onc consult in case there is to be a biospy (most likely not but will hold and discuss with onc) (3) COPD (chronic obstructive pulmonary disease) Comment: - No signs of exacerbation - Continue Dulera and tiotropium (4) HLD (hyperlipidemia) Comment: statin (5) DVT prophylaxis Comment: Warfarin Status and Disposition: Inpatient with confusion/falls with metastatic disease. Hospice consult placed ( discussed with Dr. Casiano who will be out of town and will f/u when she is back) - Placement to be determined based on PT/OT evals. She could return to [facility] with hospice but will be determined on PT eval and if she could return to assisted living.
[2018-02-11] MEDS: guaiFENesin ER TAB 600 MG PO SCH ×2 (10:44→21:40)
[2018-02-11] MEDS: NS 0.9% 1000 ML* 1,000 ML IV SCH (15:43)
--- NOTE | 2018-02-11 17:24 | CONS ---
CONSULTATION NOTE: DATE OF CONSULTATION: 02/10/18 HISTORY OF PRESENT ILLNESS: The patient is a very pleasant 82-year-old female with a history of dementia, recurrent DVT, PE, lung nodules, COPD with chronic hypoxic respiratory failure, requiring continuous oxygen and hyperlipidemia, who was brought to the emergency room after being found to have increased confusion and combativeness in her residential residence. The patient has a history of dementia in the baseline, but she was found to be more confused than her baseline, although she was found to be quite aggressive. Requested to see the patient by Dr. Muhammad because of significant complaints consistent with left temporal lesion and possible left cerebellar lesion. History was obtained from the patient's chart. The patient was diagnosed with lung nodules and had a negative biopsy and is on Coumadin for history of DVTs. PAST MEDICAL HISTORY: 1. COPD. 2. Pulmonary nodules. 3. Essential tremor. 4. Hyperlipidemia. 5. DVT/PE. 6. Osteoporosis. 7. Dementia. PAST SURGICAL HISTORY: Tonsillectomy. HOME MEDICATIONS: 1. Flonase. 2. Loperamide. 3. Tylenol. 4. Simvastatin. 5. Coumadin. 6. Caltrate. 7. Guaifenesin. 8. Albuterol. 9. Spiriva. 10. Advair. ALLERGIES: No known drug allergies. FAMILY HISTORY: Colon cancer, breast cancer, [place]. SOCIAL HISTORY: The patient is a former smoker but has not smoked for the last 4 months; more than [id number] history of smoking. Alcohol: Negative. Recreational drug use: Negative. She lives at residential and her sister is her healthcare proxy. PHYSICAL EXAMINATION: On physical examination, the patient is not in acute distress. She is confused. She is oriented to herself, but she has difficulty understanding and following commands. She has what seems to be a degree of receptive aphasia. She is awake, alert, and oriented x1. Her pupils are equal and reactive. Cranial nerves II through XII are grossly intact. Her visual dixon are difficult to assess because the patient is not cooperative. Motor 4 to 5/5 in all extremities. No pronator drift. Sensory grossly intact to light touch. Deep tendon reflexes +1 bilateral. No clonus. No Babinski. Elizalde's negative. The patient has a very soft voice, and according to the nurse, this is her baseline as her sister reported. DIAGNOSTIC STUDIES: The patient had a CT scan of her brain revealing a left posterotemporal hyperdense lesion without any edema and possible left cerebellar lesion. ASSESSMENT: The patient is a very pleasant 82-year-old female with a history of dementia, chronic obstructive pulmonary disease, chronic oxygen use, history of deep venous thrombosis and pulmonary embolisms, essential tremor with confusion, combativeness and altered mental status and has significant findings consistent with possible brain metastases. PLAN: The patient at this point has been admitted by Internal Medicine. The patient is scheduled for an MRI of her brain and CT scan of the chest, abdomen, and pelvis. She is placed on Decadron and coagulation profile has been tested. We will be happy to follow the patient once the studies are completed and discuss the possibility of surgical intervention versus other oncologic treatments. The patient will be evaluated by the oncology team. Thank you for allowing us to participate in the care of this patient. Please do not to hesitate to contact our office in case you have further questions or concerns regarding the care of this patient. Yaritza Dill MD [id number]/[facility] #: [id number] [place]
[2018-02-11] MEDS ORDERED: Dexamethasone TAB* 4 MG PO SCH (21:00)
[2018-02-11] MEDS ORDERED: Dexamethasone Oral Solution* 1 MG/ML 10 ML UDC (10 MG) PO SCH (21:35)
--- NOTE | 2018-02-11 21:45 | CONS ---
CONSULTATION REPORT: DATE OF CONSULT: 02/11/18 REFERRING PHYSICIAN: Hospitalist. PRIMARY CARE PHYSICIAN: Dr. Dorsey. REASON FOR CONSULT: Tracheal mass and INTEGRITY CONSULTANT lesion. HISTORY OF PRESENT ILLNESS: An 82-year-old female with longstanding history of COPD as well as progressive dementia over the past year. She lives in an assisted living facility called the [facility]. She was in the hospital in November for an acute pneumonia. She had been living at home prior to that and after that admission, was sent to [facility]. She presented with severe shortness of breath, improved with antibiotics and was ultimately discharged home on oxygen 05/05. That course was complicated by bilateral lower extremity DVTs for which she is now on Coumadin. Since discharge in November, she had been doing reasonably well at [facility]. Her dementia is fairly severe and she is dependent for ADLs. On 02/10/18, she took her oxygen off and became combative with the staff at her assisted living facility. This was new for her and an ambulance was called, she was taken to the emergency room. Sister was informed and has come to the hospital for her assistance. In the emergency room , she had a CT scan of the brain which showed left posterotemporal mass with vasogenic edema, mass is 2.3 cm in size and consistent with a metastatic lesion. This triggered a CT scan of the chest, abdomen and pelvis done later that day. The CT showed a large mass invading into the trachea starting from the subcarina and extending downward towards the left main stem bronchus. She does seem to have adequate air passage. There is left lower lobe collapse and it is hard to see a prior lesion that had been there. There is a small left upper lobe mass and an old stable right lower lobe nodule as well as a stable adrenal nodule. An MRI of the brain was attempted, but could not be done because she was not cooperative. Other studies on admission included a urine that showed urinary tract infection, she had stable blood counts and stable chemistries with elevated C- reactive protein at 10.74. Of note, she had been seen by Dr. Lee in the past for pulmonary nodules and had a CT-guided biopsy done in May 2016 of the left lung and it was nondiagnostic. She was scheduled for followup, but refused further followup because she did not want another biopsy. PAST MEDICAL HISTORY: 1. COPD. 2. History of pulmonary nodules, biopsy in May 2016. 3. Essential tremor. 4. Hyperlipidemia. 5. History of DVT, PE on Coumadin. 6. Osteoporosis. 7. Severe dementia. PAST SURGICAL HISTORY: Surgical tonsillectomy. MEDICATIONS: 1. Flonase 2 puffs each nostril daily. 2. Loperamide 2 mg q.4 hours p.r.n. diarrhea. 3. Tylenol 650 p.r.n. 4. Simvastatin 40 q.h.s. 5. Coumadin 4 mg alternating with 2 mg. 6. . 7. Guaifenesin 600 b.i.d. 8. Albuterol 1 puff p.r.n. 9. Spiriva 1 puff daily. 10. Advair 250/50 twice daily. 11. Home oxygen. ALLERGIES: None. SOCIAL HISTORY: She has a step-son and step-daughter that are estranged, she is not in contact. This sister is her healthcare proxy and is the point of contact. The sister is Holly Hogan, phone number [phone]. She lives at [facility], which is an assisted living. She is a former smoker, but quit several months ago with a greater than 49-[id number] history. Does not drink alcohol. REVIEW OF SYSTEMS: At this point, she has no complaints and answers diffusely yes that everything is okay. Review of systems is otherwise unable to obtain. PHYSICAL EXAM: Vital Signs: Temperature 97.9, BP 125/65, pulse 72, respirations 18, O2 saturation 99%. HEENT: Mucosa moist. No lesions. No significant lymphadenopathy. Nodes: No axillary lymphadenopathy. Lungs: Decreased breath sounds bilaterally. No central wheezing or crackles. Heart: Regular rhythm. S1, S2. No murmurs or gallops. Abdomen: Nontender, nondistended. Good bowel sounds. No hepatosplenomegaly. Extremities: Little bit of clubbing. Good pulses. Neurological: She is conversive but unable to give a history. Had a shallow understanding of the conversation. Grossly nonfocal and has a normal affect. LABORATORY DATA: As noted above. ASSESSMENT AND PLAN: An 82-year-old female with history of fairly severe dementia who presents with a urinary tract infection and is found to have INTEGRITY CONSULTANT mass as well as a tracheal lesion. Differential diagnosis includes lung cancer metastatic to the mediastinum and the brain, esophageal cancer with metastasis to the brain, could have a central bronchogenic carcinoma, with metastasis to the brain, could be other solid tumor , lymphoma less likely. We discussed that we are highly suspicious she has cancer that has spread to the brain, though that is not proven at this time. The patient has pre-expressed wishes that she does not want any aggressive procedures and no procedures under anesthesia. I talked extensively with the patient and the sister. If it is a cancer, it is not curable. She would not be a candidate for chemotherapy. Radiation therapy would be an option which could control disease for some period of time, potentially months. Patient and sister agree, no procedures and does not want any aggressive therapy. 1. We will consult hospice and they should call the sister to meet with the patient's sister as family. 2. Can change dexamethasone to 8 mg p.o. b.i.d. Continue other medications. 3. It is important to note that her behavioral changes may have been from the urinary tract infection and not from the INTEGRITY CONSULTANT lesion and it is possible she could return to [facility] with hospice. We will follow only if additional issues arise or assistance is needed and hospice was consulted today. [id number]/[facility] #: [id number] ALBINA
[2018-02-11] MEDS: Dexamethasone Oral Solution* 1 MG/ML 10 ML UDC (10 MG) PO SCH (21:48)
[2018-02-11] MEDS: Atorvastatin* 20 MG TAB PO SCH (21:48)
--- NOTE | 2018-02-11 23:32 | PN ---
Progress Note - Progress Note Date of Service: 02/11/18 SOAP: Subjective: [] No events ON Objective: []VSS AAOx1, EDY, Face symmetric, tongue midline, Receptive aphasia, but follows simple commands Julissa well, No pronator drift Sensory grossly intact, exam lomited due to mental status Assessment: []82 yof Brain lesions Plan: []CT revealed paratracheal mass MRI pending. Family most likely leaning towards hospice treatment Called patient's sister and left message. Will be available if family wishes further treatment. Juvenal Dill MD
[2018-02-12] MEDS: NS 0.9% 1000 ML* 1,000 ML IV SCH (05:10)
[2018-02-12] MEDS ORDERED: Haloperidol INJ IV/IM* 5 MG/ML AMP IM PRN (07:11)
[2018-02-12] MEDS: Tiotropium CAP.INH* CAP.INH/18 MCG (USE ORDER SET !) INH SCH (07:39)
[2018-02-12] MEDS ORDERED: cefTRIAXone(*) 1 GM in NS 0.9% 50 ML* 50 ML IVPB SCH (08:00)
[2018-02-12] MEDS: Mometasone/Formoter 200/5 MDI INH SCH ×2 (10:17→20:19)
[2018-02-12] MEDS: Dexamethasone Oral Solution* 1 MG/ML 10 ML UDC (10 MG) PO SCH ×2 (10:17→20:33)
[2018-02-12] MEDS: guaiFENesin ER TAB 600 MG PO SCH ×2 (10:17→19:46)
--- NOTE | 2018-02-12 12:38 | PN ---
Subjective Date of Service: 02/12/18 Interval History: patient seen and evaluated in her room where she is found to be sitting up in a chair reading a book. When asked what she is reading she tells me the name of the book (which is correct). She is agitated by my presence and is very short with her answers. She offers no complaints. Significant confusion at her baseline. Objective Active Medications: Acetaminophen (Tylenol Tab*) 650 mg PO Q4H PRN PRN Reason: PAIN Albuterol (Ventolin 2.5 Mg/3 Ml Neb.Diana*) 2.5 mg INH QID PRN PRN Reason: SOB/WHEEZING Atorvastatin Calcium (Lipitor*) 20 mg PO BEDTIME [facility] Last Admin: 02/11/18 21:48 Dose: 20 mg Dexamethasone (Decadron Oral Solution*) 8 mg PO BID@0900,2100 [facility] Last Admin: 02/12/18 10:17 Dose: 8 mg Guaifenesin (Mucinex*) 600 mg PO BID [facility] Last Admin: 02/12/18 10:17 Dose: Not Given Loperamide HCl (Imodium Cap*) 2 mg PO Q4H PRN PRN Reason: DIARRHEA Lorazepam (Ativan Tab(*)) 0.5 mg PO BID [facility] Lorazepam (Ativan Tab(*)) 0.5 mg PO ONCE ONE Stop: 02/12/18 13:01 Last Admin: 02/12/18 12:30 Dose: 0.5 mg Mometasone Furoate/Formoterol Fumar (Dulera 200/5 Mdi*) 2 puff INH BID [facility] Last Admin: 02/12/18 10:17 Dose: Not Given Tiotropium [place] (Spiriva Cap.Inh*) 1 cap INH DAILY [facility] Last Admin: 02/12/18 07:39 Dose: 1 cap Vital Signs - 8 hr 02/12/18 02/12/18 02/12/18 07:41 08:00 12:30 Pulse Rate 84 Respiratory 19 20 20 Rate O2 Sat by Pulse 93 Oximetry Appearance: elderly female Alert, agitated, confused Eyes: No Scleral Icterus, PERRLA Ears/Nose/Mouth/Throat: NL Teeth, Lips, Gums, Mucous Membranes Moist Neck: NL Appearance and Movements; NL JVP Respiratory: Symmetrical Chest Expansion and Respiratory Effort, Clear to Auscultation Cardiovascular: NL Sounds; No Murmurs; No JVD, RRR, No Edema Abdominal: NL Sounds; No Tenderness; No Distention Extremities: No Edema, No Clubbing, Cyanosis Skin: No Rash or Ulcers, No Nodules or Sclerosis Neurological: NL Muscle Strength and Tone, - - alert Lines/Tubes/Other Access: Clean, Dry and Intact Peripheral IV Nutrition: Taking PO's Result Diagrams: 02/10/18 18:22 02/10/18 18:22 Microbiology and Other Data: Microbiology 02/10/18 23:00 Nasal Screen MRSA (PCR)(JASON) - Final Nasal Mrsa Not Detected Assess/Plan/Problems-Billing Assessment: Ms. Schroeder is a 82 yo female with PMH of dementia, COPD with chronic O2 use, Hx of DVT/PEs, essential tremor and hx of pulmonary nodules who presented to the ER from [facility] for increased confusion and agitation - Patient Problems (1) Brain mass Comment: - DENTAL HYGIENE ADMINISTRATIVE ASSISTANT mass as well as tracheal lesion - CT chest/abd/pelvis showing: "Retrotracheal and subcarinal mass which appears to invade the posterior aspect of the trachea and left mainstem bronchus. Left lower lobe collapse. The previously noted spiculated left lower lobe lesion is obscured by the collapsed lung. This liekly represents metastatic neoplasm although an esophageal primary cannot be ruled out. New small left upper lobe cavity lesion. Stable right lower lobe pulm nodule. Stable adrenal nodule". - Appreciate oncology consult. Continue Decadron - appreciate neurosurgery consult - Discussed with sister who is the HCP, wants Hospice - Hospice consult ordered - discussed with Dr. Casiano who is out of town and will f/u next week. (2) Advanced dementia Comment: - increase in confusion and agitation - most likely a combination of brain mass and dementia. Urine cx negative. - Start ativan 0.5 mg po q12 hr (pcp recommend starting anti-anxiety and I agree this will most likley benefit the pt). May need to increase dosage but will start low and see how she responds. (3) DVT (deep venous thrombosis) Comment: - Recent hx of Occlusive thrombus extending from the right mid femoral vein to the infrapopliteal veins and from the left common femoral vein including the infrapopliteal veins - on Coumadin - INR therapuetic on admission - held on admission in case of biopsy - plan to restart tonight - I left a message for the sister to discuss plan with tx DVT and to continue coumadin, d/t recent DVT I will restart this evening (4) COPD (chronic obstructive pulmonary disease) Comment: - No signs of exacerbation - Continue Dulera and tiotropium (5) HLD (hyperlipidemia) Comment: statin (6) DVT prophylaxis Comment: HSQ Status and Disposition: Inpatient with confusion/falls with metastatic disease. Hospice consult placed ( discussed with Dr. Casiano who will be out of town and will f/u when she is back) - Placement to be determined based on PT/OT evals. She could return to [facility] with hospice but will be determined on her agitation.
[2018-02-12] MEDS ORDERED: LORazepam TAB(*) 0.5 MG PO ONE (13:00)
--- NOTE | 2018-02-12 13:04 | PN ---
Progress Note - Progress Note Date of Service: 02/12/18 SOAP: Subjective: [] No events ON Objective: [] VSS AAOx1, EDY, Face symmetric, tongue midline, Receptive aphasia, but follows simple commands Julissa well, Assessment: []82 yof Brain lesions Plan: [] Discussed with patient's sister and patient and confirmed that they would like to proceed with hospice care at this point. Will be available if family wishes further treatment. Juvenal Dill MD
[2018-02-12] MEDS ORDERED: Haloperidol INJ IV/IM* 5 MG/ML AMP ONE (16:15)
[2018-02-12] MEDS ORDERED: Haloperidol INJ IV/IM* 5 MG/ML AMP IM ONE (17:00)
[2018-02-12] MEDS ORDERED: Warfarin TAB(*) 2 MG PO SCH ×2 (17:00→21:37)
[2018-02-12] MEDS ORDERED: Warfarin TAB(*) 2 MG PO NR (17:00)
[2018-02-12] MEDS: Atorvastatin* 20 MG TAB PO SCH (20:33)
[2018-02-12] MEDS: LORazepam TAB(*) 0.5 MG PO SCH (20:33)
[2018-02-13 05:50] LABS: INR 1.59 (0.77-1.02)
[2018-02-13] MEDS: Mometasone/Formoter 200/5 MDI INH SCH ×2 (08:38→21:30)
[2018-02-13] MEDS: Tiotropium CAP.INH* CAP.INH/18 MCG (USE ORDER SET !) INH SCH (08:39)
[2018-02-13] MEDS: guaiFENesin ER TAB 600 MG PO SCH (08:59)
[2018-02-13] MEDS: LORazepam TAB(*) 0.5 MG PO SCH (08:59)
[2018-02-13] MEDS: Dexamethasone Oral Solution* 1 MG/ML 10 ML UDC (10 MG) PO SCH ×2 (09:04→20:41)
--- NOTE | 2018-02-13 14:17 | DCNOTE ---
Subjective Date of Service: 02/13/18 Interval History: Patient offers no c/o, seems content. Objective Active Medications: Acetaminophen (Tylenol Tab*) 650 mg PO Q4H PRN PRN Reason: PAIN Albuterol (Ventolin 2.5 Mg/3 Ml Neb.Diana*) 2.5 mg INH QID PRN PRN Reason: SOB/WHEEZING Atorvastatin Calcium (Lipitor*) 20 mg PO BEDTIME [facility] Last Admin: 02/12/18 20:33 Dose: 20 mg Dexamethasone (Decadron Oral Solution*) 8 mg PO BID@0900,2100 [facility] Last Admin: 02/13/18 09:04 Dose: 8 mg Guaifenesin (Mucinex*) 600 mg PO BID [facility] Last Admin: 02/13/18 08:59 Dose: 600 mg Loperamide HCl (Imodium Cap*) 2 mg PO Q4H PRN PRN Reason: DIARRHEA Lorazepam (Ativan Tab(*)) 0.5 mg PO BID [facility] Last Admin: 02/13/18 08:59 Dose: 0.5 mg Mometasone Furoate/Formoterol Fumar (Dulera 200/5 Mdi*) 2 puff INH BID [facility] Last Admin: 02/13/18 08:38 Dose: 2 puff Tiotropium [place] (Spiriva Cap.Inh*) 1 cap INH DAILY [facility] Last Admin: 02/13/18 08:39 Dose: 1 cap Vital Signs - 8 hr 02/13/18 02/13/18 02/13/18 08:15 08:34 08:59 Temperature 97.7 F Pulse Rate 81 Respiratory 13 16 16 Rate Blood Pressure 117/52 (mmHg) O2 Sat by Pulse 97 Oximetry 02/13/18 10:39 Temperature Pulse Rate Respiratory 16 Rate Blood Pressure (mmHg) O2 Sat by Pulse Oximetry Oxygen Devices in Use Now: Nasal Cannula Appearance: Sleeping but quickly woke to light touch. On her L side in bed. In good spirits. Looks comofrtable. Eyes: No Scleral Icterus Extremities: No Edema, No Clubbing, Cyanosis, - Skin: No Rash or Ulcers, No Nodules or Sclerosis, - Neurological: NL Sensation, - - Cooperatvie, Diosriented. No tremor. Result Diagrams: 02/10/18 18:22 02/10/18 18:22 Microbiology and Other Data: Microbiology 02/10/18 23:00 Nasal Screen MRSA (PCR)(JASON) - Final Nasal Mrsa Not Detected Assess/Plan/Problems-Billing Assessment: Ms. Schroeder is a 82 yo female with PMH of dementia, COPD with chronic O2 use, Hx of DVT/PEs, essential tremor and hx of pulmonary nodules who presented to the ER from [facility] for increased confusion and agitation - Patient Problems (1) Brain mass Current Visit: Yes Status: Acute Code(s): G93.9 - DISORDER OF BRAIN, UNSPECIFIED SNOMED Code(s): 444772205 Comment: - CARD MAKER mass as well as tracheal lesion. Likely metastatic disease. Continue DXM. Stop warfarin and statin. - Hospice consult ordered - discussed with Dr. Casiano who is out of town and will f/u next week. (2) Advanced dementia Current Visit: Yes Status: Acute Code(s): F03.90 - UNSPECIFIED DEMENTIA WITHOUT BEHAVIORAL DISTURBANCE SNOMED Code(s): 94474277 Comment: - increase in confusion and agitation - most likely a combination of brain mass and dementia. Urine cx negative. Continue ativan 0.5 mg po q12 hr (pcp recommend starting anti-anxiety and I agree this will most likely benefit the pt). (3) COPD (chronic obstructive pulmonary disease) Current Visit: Yes Status: Chronic Code(s): J44.9 - CHRONIC OBSTRUCTIVE PULMONARY DISEASE, UNSPECIFIED SNOMED Code(s): 09651478 Comment: - No signs of exacerbation - Continue Dulera and tiotropium Status and Disposition: Inpatient with confusion/falls with metastatic disease. Hospice consult placed ( discussed with Dr. Casiano who will be out of town and will f/u when she is back) - Transfer to [facility] 02/14/18.
[2018-02-13] MEDS ORDERED: LORazepam TAB(*) 0.5 MG SL PRN (15:17)
[2018-02-13] MEDS ORDERED: Atropine 1% (ORAL/SL)* 15 ML BTL SL PRN (15:17)
--- NOTE | 2018-02-13 15:29 | PN ---
Progress Note - Progress Note Date of Service: 02/13/18 Note: Time spent on discharge 45 minutes.
--- NOTE | 2018-02-13 16:07 | TRS ---
CC: Dr. Dorsey DATE OF ADMISSION: 02/10/2018. DATE OF TRANSFER: 02/14/2018. This is being dictated in advance. HISTORY: This 82-year-old woman presented with increased confusion and combativeness. She had been staying at the [facility] until the time of her admission. The patient's CT scan showed probably two lesions with vasogenic edema compatible with metastases. C T scan of the chest also showed intrathoracic tumor. The patient was made hospice care. She will be transferred to [facility] to receive her hospice care. FINAL DIAGNOSES: 1. Brain metastases. 2. Dementia. MEDICATIONS ON TRANSFER: 1. Atropine 1% two drops sublingual every 2 hours prn. 2. Dexamethasone 8 mg oral solution b.i.d. 3. Lorazepam 0.5 mg sublingual every 3 hours prn. 4. Morphine oral concentrate 5 mg sublingual every 30 minutes prn. 5. Albuterol 2.5 mg by nebulizer q.i.d. prn. 6. Tiotropium one capsule daily. 7. Fluticasone Salmeterol 250/50 one puff twice daily. [id number]/[facility] #: [id number]
[2018-02-13] MEDS: Albuterol 2.5 MG/3 ML NEB.SOL* (0.083%) INH PRN (16:48)
[2018-02-13] MEDS ORDERED: Warfarin TAB(*) 4 MG PO SCH (17:00)
[2018-02-13] MEDS ORDERED: Bisacodyl SUPP* 10 MG SUPP PR ONE (17:53)
[2018-02-14] MEDS: Morphine ORAL CONCENTRATE* 5 MG/0.25 ML ORAL.SYRIN SL PRN ×2 (06:15→07:40)
[2018-02-14] MEDS: Dexamethasone Oral Solution* 1 MG/ML 10 ML UDC (10 MG) PO SCH (07:40)
[2018-02-14] MEDS: Albuterol 2.5 MG/3 ML NEB.SOL* (0.083%) INH PRN (08:13)
[2018-02-14] MEDS: Mometasone/Formoter 200/5 MDI INH SCH (08:13)
[2018-02-14] MEDS: Tiotropium CAP.INH* CAP.INH/18 MCG (USE ORDER SET !) INH SCH (08:13)
[2018-02-14 09:27] VITALS: BP 142/63
--- NOTE | 2018-02-17 08:47 | ED ---
Román Horowitz Jennifer, scribed for Jeremiah Green MD on 02/10/18 at 1939 . Neurological HPI - HPI Summary HPI Summary: The patient is a 82 year old female who was brought in by police after being combative and confused today. The patient is a newer resident at a long term. The patient has a scratchy voice in the ED, but doesnt know why that is. She did not know she was in the ED and didnt know todays date. The patient winces when her lower leg is palpated. LEVEL 5 CAVEAT: HPI LIMITED DUE TO PT CONFUSION. - History of Current Complaint Chief Complaint: EDNeurologicalDeficit Stated Complaint: 941 Time Seen by Provider: 02/10/18 18:11 Hx Obtained From: EMS Hx From Patient Unobtainable Due To: Other - Confusion Onset/Duration: Sudden Onset, Still Present Pain Intensity: 0 Pain Scale Used: 0-10 Numeric Associated Signs and Symptoms: Positive: Confusion - Additional Pertinent History Primary Care Physician: [id number] - Allergy/Home Medications Allergies/Adverse Reactions: Allergies Allergy/AdvReac Type Severity Reaction Status Date / Time No Known Allergies Allergy Verified 06/03/16 08:56 Home Medications: Home Medications Acetaminophen TAB* [Tylenol TAB*] 650 mg PO Q8H PRN 02/10/18 [History Confirmed 02/10/18] Albuterol 2.5MG/3ML (0.083%)* [Ventolin 2.5 MG/3 ML NEB.KYLE*] 2.5 mg INH QID PRN 02/10/18 [History Confirmed 02/10/18] Judd/D3/Mag11/Zinc/Screen And Cyclone Repairer/Raji/Bor [Caltrate 600+D Plus] 2 tab PO BID 02/10/18 [ History Confirmed 02/10/18] Fluticasone NASAL SPRAY 50MCG* [Flonase NASAL SPRAY 50MCG*] 2 spray BOTH NARES DAILY PRN 02/10/18 [History Confirmed 02/10/18] Fluticasone-Salmeterol 250-50* [Advair Diskus 250-50*] 1 puff INH BID 02/10/18 [ History Confirmed 02/10/18] Loperamide CAP* [Imodium CAP*] 2 mg PO Q4H PRN 02/10/18 [History Confirmed 02/10] Simvastatin TAB(NF) [Zocor(NF)] 40 mg PO BEDTIME 02/10/18 [History Confirmed 10/30] Tiotropium CAP.INH* [Spiriva CAP.INH*] 1 cap.inh INH DAILY 02/10/18 [History Confirmed 02/10/18] Warfarin TAB(*) [Coumadin TAB(*)] 2 mg PO MOTH 02/10/18 [History Confirmed 02/10] Warfarin TAB(*) [Coumadin TAB(*)] 4 mg PO SUTUWEFRSA 02/10/18 [History Confirmed 02/10/18] guaiFENesin ER TAB [Mucinex*] 600 mg PO BID 02/10/18 [History Confirmed 02/10/18 ] PMH/Surg Hx/FS Hx/Imm Hx Cardiovascular History: Reports: Hx Hypercholesterolemia, Other Cardiovascular Problems/Disorders - HLD Respiratory History: Reports: Hx Chronic Obstructive Pulmonary Disease (COPD), Hx Pulmonary Embolism Musculoskeletal History: Reports: Hx Osteoporosis, Other Musculoskeletal History - DDD Denies: Hx Rheumatoid Arthritis Sensory History: Reports: Hx Contacts or Glasses Denies: Hx Hearing Aid Opthamlomology History: Reports: Hx Contacts or Glasses Neurological History: Reports: Hx Dementia - Cancer History Hx Chemotherapy: No Hx Radiation Therapy: No - Surgical History Surgery Procedure, Year, and Place: lung biopsy, tonsillectomy Infectious Disease History: No Infectious Disease History: Denies: Traveled Outside the [place] in Last 30 Days - Social History Alcohol Use: None Substance Use Type: Reports: None Smoking Status (MU): Former Smoker Type: Cigarettes Have You Smoked in the Last Year: Yes - Additional Comments History Additional Comments: LEVEL 5 CAVEAT: PMH LIMITED DUE TO PT CONFUSION. Review of Systems ENT: Other - Scratchy voice Positive: Other - lower leg pain Neurological: Other - confusion, doesn't know today's date, doesn't know where she is All Other Systems Reviewed And Are Negative: No - Comments Additional Review of Systems Comments: LEVEL 5 CAVEAT: ROS LIMITED DUE TO PT CONFUSION. Physical Exam - Summary Physical Exam Summary: Constitutional: Well-developed, Well-nourished, Alert. (-) Distressed Skin: Warm, Dry HENT: Apparent vocal cord dysfunction. No stridor, no sterter. Normocephalic; Atraumatic Eyes: Conjunctiva normal Neck: Musculoskeletal ROM normal neck. (-) JVD, (-) Stridor, (-) Tracheal deviation Cardio: Rhythm regular, rate normal, Heart sounds normal; Intact distal pulses; The pedal pulses are 2+ and symmetric. Radial pulses are 2+ and symmetric. (-) Murmur Pulmonary/Chest wall: Effort normal. (-) Respiratory distress, (-) Wheezes, (-) Rales Abd: Soft, (-) Tenderness, (-) Distension, (-) Guarding, (-) Rebound Musculoskeletal: (-) Edema Lymph: (-) Cervical adenopathy Neuro: Alert. Disoriented. Speech fluent. LEVEL 5 CAVEAT: PHYSICAL EXAM LIMITED DUE TO PT CONFUSION. Triage Information Reviewed: Yes Vital Signs On Initial Exam: Initial Vitals Temp Pulse Resp BP Pulse Ox 98.3 F 95 16 114/62 100 02/10/18 18:00 02/10/18 18:00 02/10/18 18:00 02/10/18 18:00 02/10/18 18:00 Vital Signs Reviewed: Yes Diagnostics - Vital Signs Vital Signs Temp Pulse Resp BP Pulse Ox 02/10/18 18:38 87 13 122/63 99 02/10/18 18:00 98.3 F 95 16 114/62 100 - Laboratory Lab Results: Lab Results 02/10/18 02/10/18 02/10/18 Range/Units 18:22 18:22 18:22 WBC 7.3 (3.5-10.8) 10^3/ul RBC 4.18 (4.0-5.4) 10^6/ul Hgb 12.5 (12.0-16.0) g/dl Hct 38 (35-47) % MCV 90 (80-97) fL MCH 30 (27-31) pg MCHC 33 (31-36) g/dl RDW 17 H (10.5-15) % Plt Count 272 (150-450) 10^3/ul MPV 6.4 L (7.4-10.4) um3 Neut % (Auto) 58.8 (38-83) % Lymph % (Auto) 30.0 (25-47) % Mora % (Auto) 6.6 (0-7) % Eos % (Auto) 3.4 (0-6) % Baso % (Auto) 1.2 (0-2) % Absolute Neuts (auto) 4.3 (1.5-7.7) 10^3/ul Absolute Lymphs (auto) 2.2 (1.0-4.8) 10^3/ul Absolute Monos (auto) 0.5 (0-0.8) 10^3/ul Absolute Eos (auto) 0.3 (0-0.6) 10^3/ul Absolute Basos (auto) 0.1 (0-0.2) 10^3/ul Absolute Nucleated RBC 0 10^3/ul Nucleated RBC % 0 Sodium 137 L (139-145) mmol/L Potassium 4.0 (3.5-5.0) mmol/L Chloride 103 (101-111) mmol/L Carbon Dioxide 25 (22-32) mmol/L Anion Gap 9 (2-11) mmol/L BUN 11 (6-24) mg/dL Creatinine 0.71 (0.51-0.95) mg/dL Est GFR ( Amer) 101.6 (>60) Est GFR (Non-Af Amer) 79.0 (>60) BUN/Creatinine Ratio 15.5 (8-20) Glucose 128 H (70-100) mg/dL Lactic Acid 1.9 (0.5-2.0) mmol/L Calcium 9.0 (8.6-10.3) mg/dL Total Bilirubin 0.40 (0.2-1.0) mg/dL AST 18 (13-39) U/L ALT 13 (7-52) U/L Alkaline Phosphatase 55 (34-104) U/L C-Reactive Protein 10.74 H (< 5.00) mg/L Total Protein 6.4 (6.4-8.9) g/dL Albumin 3.4 (3.2-5.2) g/dL Globulin 3.0 (2-4) g/dL Albumin/Globulin Ratio 1.1 (1-3) Lipase 33 (11.0-82.0) U/L Result Diagrams: 02/10/18 18:22 02/10/18 18:22 Lab Statement: Any lab studies that have been ordered have been reviewed, and results considered in the medical decision making process. - Radiology cxr Xray Interpretation: Positive (See Comments) - LEFT PLEURAL EFFUSION. Dr. Green has reviewed this report. Radiology Interpretation Completed By: Radiologist - CT Brain CT CT Interpretation: Positive (See Comments) - LEFT POSTERIOR TEMPORAL LOBE MASS WITH ASSOCIATED VASOGENIC EDEMA, WITH A PROBABLE LESION OF THE LEFT CEREBELLAR HEMISPHERE, MOST CONSISTENT WITH METASTATIC DISEASE TO THE BRAIN. THERE IS NO SHIFT. Dr. Green has reviewed this report. CT Interpretation Completed By: Radiologist Course/Dx - Course Course Of Treatment: The patient is a 82 year old female who was brought in by police after being combative and confused today. She did not know where she was today or what todays date was. CXR showed LEFT PLEURAL EFFUSION. Brain CT showed LEFT POSTERIOR TEMPORAL LOBE MASS WITH ASSOCIATED VASOGENIC EDEMA, WITH A PROBABLE LESION OF THE LEFT CEREBELLAR HEMISPHERE, MOST CONSISTENT WITH METASTATIC DISEASE TO THE BRAIN. THERE IS NO SHIFT. The patient is diagnosed with AMS and brain mass. The patient was admitted to [facility] [place]. - Diagnoses Provider Diagnoses: Altered mental status, Brain mass Discharge - Sign-Out/Discharge Documenting (check all that apply): Discharge/Admit/Transfer - Discharge Plan Condition: Good Disposition: ADMITTED TO [facility] documentation as recorded by the Román ribeiro Jennifer accurately reflects the service I personally performed and the decisions made by , Jeremiah Green MD.
== END 2018-02-14 11:05 | DRG 180 ==
LOC: ED 17:49 → MED 21:32
PROVIDERS: ADMIT Hospitalist; ATTEND Internal Medicine
DX: C34.32 Malignant neoplasm of lower lobe, left bronchus or lung (principal); G93.6 Cerebral edema; C79.31 Secondary malignant neoplasm of brain; J96.11 Chronic respiratory failure with hypoxia; R47.01 Aphasia; I82.433 Acute embolism and thrombosis of popliteal vein, bilateral; I82.413 Acute embolism and thrombosis of femoral vein, bilateral; J98.19 Other pulmonary collapse; N39.0 Urinary tract infection, site not specified; C33 Malignant neoplasm of trachea; J44.9 Chronic obstructive pulmonary disease, unspecified; G25.0 Essential tremor; E78.5 Hyperlipidemia, unspecified; M81.0 Age-related osteoporosis without current pathological fracture; F03.90 Unspecified dementia, unspecified severity, without behavioral disturbance, psychotic disturbance, mood disturbance, and anxiety; Z66 Do not resuscitate; S80.01XA Contusion of right knee, initial encounter; X58.XXXA Exposure to other specified factors, initial encounter; Y92.9 Unspecified place or not applicable; Z86.718 Personal history of other venous thrombosis and embolism; Z86.711 Personal history of pulmonary embolism; Z99.81 Dependence on supplemental oxygen; Z80.0 Family history of malignant neoplasm of digestive organs; Z80.3 Family history of malignant neoplasm of breast; Z87.891 Personal history of nicotine dependence
CPT/HCPCS: 36415; 70450; 71046; 71260; 74177; 80053; 81003; 81015; 83605; 83690; 85025; 85610; 86140; 87086; 87641; 94640; 99223; 99285; A9270-GY; J0696; J1100; J1630; J8540; Q9967